=== PATIENT | male | born 1930 | race Caucasian/White ===

== ENCOUNTER 2017-11-16 17:54 | Emergency (ER) | payer OTHER ==
[~2017-11-16] VITALS: Ht 177.8 cm; Wt 100.7 kg
[~2017-11-16 17:54] MED LIST: ASPI81TA28 PO; CHOL100027 PO; CLC100X PO; CYAN10004 PO; FURO20TA PO; LEVO100T PO; LORA0.5T12 PO; LVQ750 PO; NTRGSL/4 UT; POTA1TAB PO; SIMV10TA5 PO; TAMS0.4C38 PO; THIA100T14 PO; TRAM-10 PO; VITA1CAP7 PO; WARF5TAB90 PO
[2017-11-16 18:10] VITALS: TEMP 36.5; Ht 177.8 cm; Wt 100.7 kg
--- NOTE | 2017-11-16 18:11 | EMERGENCY ROOM VISIT NOTE ---
History Report prepared by Luis: Frank Garcia Under the Supervision of: Dr. Jeromy Smith M.D. First contact with patient: 17:59 Stated Complaint: SYNCOPE, HYPOTENSION History of Present Illness The patient is an 86 year old male who presents to the Emergency Room with complaints of an episode of syncope occurring tonight. The patient states that he does not remember the episode today. Per nurse, the patient's blood pressure was 60/40 when he was brought in by EMS today. The patient notes that he has had similar episodes before and currently feels fine. He denies any CP, SOB, headache, neck pain, urinary symptoms, diarrhea, and blood in his stool. He reports that he has a history of atrial fibrillation and diabetes. Source of History: patient, nursing staff Onset: tonight Position: other (global) Quality: other (syncope) Timing: other (an episode) Associated Symptoms: No headache, No neck pain, No chest pain, No SOB, No diarrhea, No urinary symptoms Note: He also complains of hypotension. She denies any blood in his stool. Review of Systems See HPI for pertinent positives & negatives. A total of 10 systems reviewed and were otherwise negative. Past Medical & Surgical Medical Problems: (1) Atrial fibrillation (2) Diabetes (3) HTN (hypertension) Family History No pertinent family history stated. Social History Smoking Status: Never Smoker Drug Use: none Marital Status: Housing Status: lives with family Occupation Status: retired Current/Historical Medications Scheduled Aspirin (Aspirin Ec), 81 MG PO DAILY Atorvastatin (Atorvastatin Calcium), 40 MG PO DAILY Cholecalciferol (Vitamin D3 400), 400 INTER.UNIT PO DAILY Cyanocobalamin (Vitamin B-12 1000 Mcg), 1,000 MCG PO DAILY Furosemide (Furosemide), 10 MG PO DAILY Levothyroxine Sodium (Levothyroxine Sodium), 100 MCG PO DAILY Tamsulosin HCl (Tamsulosin HCl), 0.4 MG PO DAILY Vitamin E (Vitamin E), 1,000 INTER.UNIT PO Q2D Warfarin Sod (Jantoven), 7.5 MG PO 5XWK Warfarin Sod (Jantoven), 5 MG PO 2XWK Scheduled PRN Nitroglycerin (Nitrostat), 0.4 MG UT UD PRN for Chest Pain Allergies Coded Allergies: Glimepiride (Verified Allergy, Unknown, Dizziness, 11/16/17) Ramipril (Verified Allergy, Unknown, Cough, 11/16/17) Physical Exam Vital Signs Date Time Temp Pulse Resp B/P (MAP) Pulse Ox O2 Delivery O2 Flow Rate FiO2 11/16/17 19:53 76 18 176/87 99 11/16/17 18:49 82 20 164/83 99 77 161/89 97 158/77 11/16/17 18:10 36.5 78 20 151/95 100 Room Air Physical Exam GENERAL: Patient is well appearing and in no acute distress, elderly, hard of hearing. HEENT: No acute trauma, normocephalic atraumatic, mucous membranes moist, no nasal congestion, no scleral icterus. NECK: No stridor, no adenopathy, no meningismus, trachea is midline. LUNGS: No dyspnea. Clear to auscultation and equal bilaterally. No wheeze, no rhonchi. HEART: Regular rate and rhythm. No murmurs, rubs, gallops appreciated. ABDOMEN: Soft, nontender, bowel sounds positive, no masses appreciated, no peritonitis. BACK: No midline tenderness, no CVA tenderness EXTREMITIES: Normal motion all extremities, no cyanosis, no edema. NEUROLOGIC: Alert and oriented, no acute motor or sensory deficits, no focal weakness, cranial nerves grossly intact. SKIN: No rash, no jaundice, no diaphoresis. Medical Decision & Procedures ER Provider Diagnostic Interpretation: Radiology results and stated below per my review and radiologist interpretation: CHEST ONE VIEW PORTABLE FINDINGS: Atherosclerosis of the aortic arch. Cardiac silhouette normal in size. Lungs and pleural spaces clear. Degenerative changes of the thoracic spine. Upper abdomen normal. IMPRESSION: 1. No acute cardiopulmonary disease. Electronically signed by: Jero Christianson M.D. 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 Proportional ventricular and sulcal prominence, likely age-related parenchymal volume loss. Periventricular and subcortical white matter hypoattenuation, nonspecific but likely indicative of chronic small vessel ischemic change. 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 No mass effect or midline shift. No hemorrhage or acute territorial infarct. No extra-axial fluid collection. Paranasal sinuses and mastoid air cells clear. Calvarium intact. Bilateral lumbee lenses are absent. IMPRESSION: 1. No acute intracranial abnormality. 2. Known pituitary mass. Electronically signed by: Jero Christianson M.D. 11/16/2017 6:41 PM Laboratory Results 11/16/17 18:10 Red Blood Count 3.75, Mean Corpuscular Volume 93.3, Mean Corpuscular Hemoglobin 30.4, Mean Corpuscular Hemoglobin Concent 32.6, Mean Platelet Volume 10.3, Neutrophils (%) (Auto) 65.5, Lymphocytes (%) (Auto) 19.4, Monocytes (%) (Auto) 9.2, Eosinophils (%) (Auto) 5.2, Basophils (%) (Auto) 0.6, Neutrophils # (Auto) 5.27, Lymphocytes # (Auto) 1.56, Monocytes # (Auto) 0.74, Eosinophils # (Auto) 0.42, Basophils # (Auto) 0.05 11/16/17 18:10 Test 11/16/17 18:10 11/16/17 18:36 White Blood Count 8.05 K/uL (4.8-10.8) Red Blood Count 3.75 M/uL (4.7-6.1) Hemoglobin 11.4 g/dL (14.0-18.0) Hematocrit 35.0 % (42-52) Mean Corpuscular Volume 93.3 fL (80-100) Mean Corpuscular Hemoglobin 30.4 pg (25-34) Mean Corpuscular Hemoglobin Concent 32.6 g/dl (32-36) Platelet Count 157 K/uL (130-400) Mean Platelet Volume 10.3 fL (7.4-10.4) Neutrophils (%) (Auto) 65.5 % Lymphocytes (%) (Auto) 19.4 % Monocytes (%) (Auto) 9.2 % Eosinophils (%) (Auto) 5.2 % Basophils (%) (Auto) 0.6 % Neutrophils # (Auto) 5.27 K/uL (1.4-6.5) Lymphocytes # (Auto) 1.56 K/uL (1.2-3.4) Monocytes # (Auto) 0.74 K/uL (0.11-0.59) Eosinophils # (Auto) 0.42 K/uL (0-0.5) Basophils # (Auto) 0.05 K/uL (0-0.2) RDW Standard Deviation 47.4 fL (36.4-46.3) RDW Coefficient of Variation 13.8 % (11.5-14.5) Immature Granulocyte % (Auto) 0.1 % Immature Granulocyte # (Auto) 0.01 K/uL (0.00-0.02) Prothrombin Time 25.5 SECONDS (9.0-12.0) Prothromb Time International Ratio 2.5 (0.9-1.1) Activated Partial Thromboplast Time 32.6 SECONDS (21.0-31.0) Partial Thromboplastin Ratio 1.3 Anion Gap 6.0 mmol/L (3-11) Est Creatinine Clear Calc Drug Dose 39.4 ml/min Estimated GFR () 46.0 Estimated GFR (Non- 39.7 BUN/Creatinine Ratio 18.2 (10-20) Calcium Level 8.4 mg/dl (8.5-10.1) Troponin I < 0.015 ng/ml (0-0.045) Urine Color YELLOW Urine Appearance CLEAR (CLEAR) Urine pH 5.5 (4.5-7.5) Urine Specific [place] 1.013 (1.000-1.030) Urine Protein NEG (NEG) Urine Glucose (UA) NEG (NEG) Urine Ketones NEG (NEG) Urine Occult Blood 2+ (NEG) Urine Nitrite NEG (NEG) Urine Bilirubin NEG (NEG) Urine Urobilinogen NEG (NEG) Urine Leukocyte Esterase NEG (NEG) Urine WBC (Auto) 1-5 /hpf (0-5) Urine RBC (Auto) 10-30 /hpf (0-4) Urine Hyaline Casts (Auto) 1-5 /lpf (0-5) Urine Epithelial Cells (Auto) 10-20 /lpf (0-5) Urine Bacteria (Auto) NEG (NEG) Laboratory results as reviewed by me. Medications Administered Medications (Trade) Dose Ordered Sig/Stephanie Route Start Time Stop Time Status Last Admin Dose Admin Sodium Chloride 500 ml @ 999 mls/hr Q31M STAT IV 11/16/17 18:52 11/16/17 19:22 DC 11/16/17 19:23 999 MLS/HR ECG Indication: syncope Rate (beats per minute): 71 Rhythm: atrial flutter Findings: no acute ischemic change Comparison ECG Date: 05/28/2015 Change: There is similar morphology compared to prior. ST depression has resolved. ED Course 180: The patient was evaluated in room A2. A complete history and physical exam was performed. 1829: I reevaluated the patient. He is currently at CT. His daughter is at bedside. She stated that the patient was walking around tonight before his syncopal event. She notes that the patient suddenly appeared confused, altered, and then became weak. She reports that she sat him down and then laid him flat on the floor. She notes that the patient had shallow breathing, blue lips, and was minimally to non-responsive. She reports that the patient had a continued pulse and that the episode lasted about 15-25 minutes before EMS arrived. She states that the patient gradually returned to normal. 1851: Sodium Chloride 500 ml @ 999 mls/hr 1919: I rechecked on the patient. He does not want to stay and understands that we do not quite know what happened to him today. The patient is leaving against my medical advice. I spoke to him and told him that he can make his own decisions. His daughter agrees. He additionally notes that he would not have liked CPR anyway. 1928: Reevaluated the patient. Discussed results and discharge instructions. He verbalized understanding and agreement. The patient is ready for discharge. Medical Decision Differential: Vaso-vagal, Intracerebral Event, Neurologic, Infectious, Volume Deficiency, Hypoglycemia, Electrolyte Abnormality, Cardiac Source, Toxicologic, amongst other pathologies entertained. 86 yr old male arrives via ems for evaluation of prolonged syncope/ams. No symptoms on arrival and feeling well. Daughter witnessed event and is at baseline stating he is back to normal. Work-up benign other than maybe a bit on dry side and thus given some extra fluids. Ortho negative and EKG irregular like previous. He is not interested in staying in hospital for monitoring. I discussed at length with him and daughter fact that he could at home and that I am not sure of cause, though he wishes to go home. Aware he can return at any time if worsening, other concerns or just wants recheck. Stressed importance of following up with PCP as soon as possible. Stable, comfortable, A &Ox4 and watching football at time of discharge. Medication Reconcilliation Current Medication List: was personally reviewed by me Blood Pressure Screening Patient's blood pressure: Elevated blood pressure Blood pressure disposition: Elevated BP felt to be situational Impression Primary Impression: Syncope Additional Impression: Dehydration Scribe Attestation The scribe's documentation has been prepared under my direction and personally reviewed by me in its entirety. I confirm that the note above accurately reflects all work, treatment, procedures, and medical decision making performed by me. Departure Information Dispostion Home / Self-Care Referrals Luz Elena Mares M.D. (PCP) Forms HOME CARE DOCUMENTATION FORM, IMPORTANT VISIT INFORMATION Patient Instructions [facility] Additional Instructions You had a syncopal event of unknown cause. The standard care would be to monitor you in the hospital though you have chosen to leave to go home. We are unsure why you had your passing out episode and it is possible it was a heart attack, stroke or other severe medical condition that may re-occur, possibly worse next time. We are always here to help and if at any time you wish further evaluation, return immediately or call 911. You must follow up with your primary care provider as soon as possible. Call them in the morning to make an urgent appointment. Problem Qualifiers Primary Impression: Syncope Syncope type: unspecified Qualified Codes: R55 - Syncope and collapse
[2017-11-16 18:20] LABS: BASO % 0.6 %; BASO ABS # 0.05 K/uL (0-0.2); COMPLETE YES; EOS % 5.2 %; IG% 0.1 %; LYMPH % 19.4 %; LYMPH ABS # 1.56 K/uL (1.2-3.4); MEAN CELL VOLUME 93.3 fL (80-100); MEAN CORPUSCULAR HEMOGLOBIN 30.4 pg (25-34); MEAN CORPUSCULAR HGB CONC 32.6 g/dl (32-36); MEAN PLATELET VOLUME 10.3 fL (7.4-10.4); MONO % 9.2 %; NEUT % 65.5 %; PLATELET COUNT 157 K/uL (130-400); RED BLOOD COUNT 3.75 M/uL (4.7-6.1); WHITE BLOOD COUNT 8.05 K/uL (4.8-10.8)
[2017-11-16] MEDS ORDERED: LPT40 PO (18:23)
[2017-11-16] MEDS ORDERED: WARF5TAB7 PO ×2 (18:23)
[2017-11-16] MEDS ORDERED: FLM4 PO (18:23)
[2017-11-16] MEDS ORDERED: LEVO100T7 PO (18:23)
[2017-11-16] MEDS ORDERED: LSX20 PO (18:23)
[2017-11-16] MEDS ORDERED: VITA10004 PO (18:26)
[2017-11-16] MEDS ORDERED: CHOL400C PO (18:28)
--- NOTE | 2017-11-16 18:29 | DIAGNOSTIC IMAGING REPORT ---
CHEST ONE VIEW PORTABLE CLINICAL HISTORY: 86 years-old Male presenting with Syncope. TECHNIQUE: Portable upright AP view of the chest was obtained. COMPARISON: 05/29/2015. FINDINGS: Atherosclerosis of the aortic arch. Cardiac silhouette normal in size. Lungs and pleural spaces clear. Degenerative changes of the thoracic spine. Upper abdomen normal. IMPRESSION: 1. No acute cardiopulmonary disease. Electronically signed by: Jero Christianson M.D. 11/16/2017 6:27 PM Dictated Date/Time: 11/16/2017 6:26 PM
[2017-11-16 18:34] LABS: INR 2.5 (0.9-1.1); PARTIAL THROMBOPLASTIN RATIO 1.3; PROTHROMBIN TIME (PATIENT) 25.5 SECONDS (9.0-12.0)
--- NOTE | 2017-11-16 18:42 | DIAGNOSTIC IMAGING REPORT ---
HEAD WITHOUT CONTRAST (CT) CLINICAL HISTORY: 86 years-old Male presenting with syncope, remote history of brain surgery. TECHNIQUE: Multidetector CT imaging of the head was performed without the use of intravenous contrast. IV contrast: None. A dose lowering technique was used consistent with the principles of ALARA (as low as reasonably achievable). COMPARISON: 05/06/2015. CT DOSE (mGy.cm): The estimated cumulative dose is 749.40 mGy.cm. 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 Proportional ventricular and sulcal prominence, likely age-related parenchymal volume loss. Periventricular and subcortical white matter hypoattenuation, nonspecific but likely indicative of chronic small vessel ischemic change. 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 No mass effect or midline shift. No hemorrhage or acute territorial infarct. No extra-axial fluid collection. Paranasal sinuses and mastoid air cells clear. Calvarium intact. Bilateral [place] lenses are absent. IMPRESSION: 1. No acute intracranial abnormality. 2. Known pituitary mass. Electronically signed by: Jero Christianson M.D. 11/16/2017 6:41 PM Dictated Date/Time: 11/16/2017 6:37 PM
[2017-11-16 18:49] LABS: BLOOD UREA NITROGEN 28 mg/dl (7-18); BUN/CREATININE RATIO 18.2 (10-20); CALCIUM 8.4 mg/dl (8.5-10.1); CARBON DIOXIDE 29 mmol/L (21-32); CHLORIDE 108 mmol/L (98-107); CREATININE 1.54 mg/dl (0.60-1.40); GLUCOSE 125 mg/dl (70-99); POTASSIUM 3.6 mmol/L (3.5-5.1); SODIUM 143 mmol/L (136-145)
[2017-11-16] MEDS ORDERED: SODIUM CHLORIDE 0.9% 500ML 500 ML IV STA (18:52)
[2017-11-16 19:01] LABS: URINE APPEARANCE CLEAR (CLEAR); URINE BILIRUBIN NEG (NEG); URINE COLOR YELLOW; URINE NITRITE NEG (NEG); URINE PH 5.5 (4.5-7.5); URINE SPECIFIC GRAVITY 1.013 (1.000-1.030); UROBILINOGEN NEG (NEG); ZZUR CULT IF INDIC CLEAN CATCH NO
[2017-11-16 19:03] LABS: MANUAL MICROSCOPIC REQUIRED? NO; REVIEW REQ? NO
[2017-11-16 19:53] VITALS: BP 176/87; PULSE 76; O2SAT 99
== END 2017-11-16 19:53 | disposition home or self-care (01) ==
LOC: EDBD 17:54 → C.EDA 17:57
DX: R55 Syncope and collapse (principal); E86.0 Dehydration; I48.92 Unspecified atrial flutter; I48.91 Unspecified atrial fibrillation; E11.9 Type 2 diabetes mellitus without complications; I10 Essential (primary) hypertension; Z79.82 Long term (current) use of aspirin; Z79.01 Long term (current) use of anticoagulants; Z79.899 Other long term (current) drug therapy; Z88.8 Allergy status to other drugs, medicaments and biological substances

== ENCOUNTER 2018-02-18 14:26 | Inpatient (IN) | payer OTHER ==
[~2018-02-18] VITALS: Ht 182.9 cm; Wt 94.2 kg
[~2018-02-18 14:26] MED LIST changes: -CHOL100027 PO; +CHOL400C PO; -CLC100X PO; +FLM4 PO; -FURO20TA PO; -LEVO100T PO; +LEVO100T7 PO; -LORA0.5T12 PO; +LPT40 PO; +LSX20 PO; -LVQ750 PO; -POTA1TAB PO; -SIMV10TA5 PO; -TAMS0.4C38 PO; -THIA100T14 PO; -TRAM-10 PO; +VITA10004 PO; -VITA1CAP7 PO; +WARF5TAB7 PO; -WARF5TAB90 PO
[2018-02-18] MEDS ORDERED: SODIUM CHLORIDE 0.9% 1000ML 1,000 ML IV STA (14:41)
[2018-02-18] MEDS ORDERED: ONDANSETRON INJ 2 MG/ML 2 ML VIAL IV STA (14:41)
--- NOTE | 2018-02-18 14:41 | EMERGENCY ROOM VISIT NOTE ---
History Report prepared by Luis: Lisbeth Moraes Under the Supervision of: Aisha ZhangO. First contact with patient: 14:33 Stated Complaint: FALL/BACK AND HIP PAIN History of Present Illness The patient is an 87 year old male who presents to the Emergency Room brought in by EMS with complaints of constant left hip pain due to an episodic fall that occurred last night. The patient states that he tripped and fell onto his carpeted floor last night and stayed on the floor all night. He states that he tried to get up several times and was crawling at points in an effort to get up , though was unsuccessful. Per EMS, the patients family found the patient on the floor this afternoon. The family reports they last spoke with the past at 1700 yesterday. The patient notes left hip pain, right lower leg pain, left ankle pain, and right shoulder pain. He denies any back pain or neck pain. He currently rates his pain a 6/10 in severity. He notes that movement worsens his pain. Source of History: patient, EMS Onset: last night Position: other (left hip) Symptom Intensity: 6/10 Timing: constant Modifying Factors (Worsening): movement Associated Symptoms: No neck pain, No back pain Note: Notes fall. Notes left hip pain, right lower leg pain, left ankle pain, and right shoulder pain. Review of Systems See HPI for pertinent positives & negatives. A total of 10 systems reviewed and were otherwise negative. Past Medical & Surgical Medical Problems: (1) Atrial fibrillation (2) Diabetes (3) Hematoma (4) HTN (hypertension) Family History No pertinent family history Social History Smoking Status: Former Smoker Drug Use: none Marital Status: Housing Status: lives with family Occupation Status: retired Current/Historical Medications Scheduled Aspirin (Aspirin Ec), 81 MG PO DAILY Atorvastatin (Lipitor), 40 MG PO DAILY Cholecalciferol (Vitamin D3 400), 400 INTER.UNIT PO DAILY Cyanocobalamin (Vitamin B-12 1000 Mcg), 1,000 MCG PO DAILY Furosemide (Furosemide), 10 MG PO DAILY Levothyroxine Sodium (Levothyroxine Sodium), 100 MCG PO DAILY Tamsulosin HCl (Tamsulosin HCl), 0.4 MG PO DAILY Vitamin E (Vitamin E), 1,000 INTER.UNIT PO Q2D Warfarin Sod (Jantoven), 7.5 MG PO 5XWK Warfarin Sod (Jantoven), 5 MG PO 2XWK Scheduled PRN Nitroglycerin (Nitrostat), 0.4 MG UT UD PRN for Chest Pain Allergies Coded Allergies: Glimepiride (Verified Allergy, Unknown, Dizziness, 02/18/18) Ramipril (Verified Allergy, Unknown, Cough, 02/18/18) Physical Exam Vital Signs Date Time Temp Pulse Resp B/P (MAP) Pulse Ox O2 Delivery O2 Flow Rate FiO2 02/18/18 21:39 84 20 135/75 96 02/18/18 19:13 76 127/64 95 Room Air 02/18/18 17:03 79 18 134/74 99 Room Air 02/18/18 15:11 80 15 94 02/18/18 15:06 72 17 97 02/18/18 15:01 81 17 163/90 98 02/18/18 14:56 83 19 98 02/18/18 14:51 78 18 97 02/18/18 14:46 83 18 97 02/18/18 14:44 99 Room Air 02/18/18 14:44 37.0 81 20 163/100 99 Room Air 02/18/18 14:41 80 15 98 02/18/18 14:38 81 02/18/18 14:36 79 22 02/18/18 14:34 163/100 Physical Exam GENERAL: Patient is awake, alert, and in no acute distress. Patient is uncomfortable appearing. EYES: The conjunctivae are clear. The pupils are round and reactive. EARS, NOSE, MOUTH AND THROAT: The nose is without any evidence of any deformity. Mucous membranes are dry tongue is midline NECK: The neck is nontender and supple. RESPIRATORY: Lung sounds diminished throughout, rales at both bases. CARDIOVASCULAR: Regular rate and rhythm noted there no murmurs rubs or gallops normal S1 normal S2 GASTROINTESTINAL: The abdomen is soft. Bowel sounds are present in all quadrants. Abdomen is nontender BACK: No midline tenderness or or step-off noted range of motion in flexion extension as well as rotation no signs of muscle spasm noted MUSCULOSKELETAL/EXTREMITIES: Pain with ROM of left hip, significant shortening appreciated, multiple other areas of tenderness to palpation at the right tib- fib, left ankle, left hip, and right shoulder. SKIN: Pedal edema bilaterally, erythema and abrasions noted to LE and the face. NEUROLOGIC: Patient is awake alert and oriented x3, strength is symmetric, but diminished. Medical Decision & Procedures ER Provider Diagnostic Interpretation: Radiology results as stated below per my review and radiologist interpretation: R TIBIA/FIBULA 2 VIEWS ROUTINE CLINICAL HISTORY: 87 years-old Male presenting with fall. TECHNIQUE: Frontal and lateral views of the right lower leg were obtained. COMPARISON: None. FINDINGS: Degenerative changes at the knee and ankle mortise. Both the knee joint and ankle mortise are intact. No acute fracture or acute subluxation. Osteopenia may be present. Atherosclerosis. IMPRESSION: No acute osseous injury of the right lower leg. Electronically signed by: Jero Christianson M.D. 02/18/2018 3:58 PM Dictated Date/Time: 02/18/2018 3:57 PM R HUMERUS MIN 2 VIEWS ROUTINE CLINICAL HISTORY: 87 years-old Male presenting with fall. TECHNIQUE: Frontal and lateral views of the right humerus were obtained. COMPARISON: None. FINDINGS: Glenohumeral joint and acromioclavicular joint with degenerative change. 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 No acute fracture or acute subluxation. No radiographic soft tissue abnormality. IMPRESSION: No acute osseous injury of the right humerus. Electronically signed by: Jero Christianson M.D. 02/18/2018 3:56 PM Dictated Date/Time: 02/18/2018 3:54 PM L PELVIS/UNILATERAL HIP 2-3VIEWS CLINICAL HISTORY: fall trauma. Pain. COMPARISON: None. DISCUSSION: Generalized degenerative change. No evidence for fracture. 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 There is no evidence for soft tissue swelling. IMPRESSION: Degenerative change. No acute bony abnormality. The above report was generated using voice recognition software. It may contain grammatical, syntax or spelling errors. Electronically signed by: Yeyo Stiles M.D. 02/18/2018 3:55 PM Dictated Date/Time: 02/18/2018 3:[address] OF THE HEAD WITHOUT CONTRAST CLINICAL HISTORY: Fall. COMPARISON STUDY: Head CT November 16, 2017. CT DOSE: 823.94 mGycm TECHNIQUE: Helical axial images of the head were obtained without IV contrast. Automated exposure control was utilized for the study. A dose lowering technique was utilized adhering to the principles of ALARA. FINDINGS: No acute intracranial hemorrhage is present. Ventricular system is stable. Basilar cisterns are patent. There are no extra axial collections. Bilobed basal ganglia calcification is noted. Pontine calcification is again noted. White matter hypodensity suggests small vessel disease. There is no calvarial fracture. 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 This is suboptimally assessed by CT. There is mild mucosal thickening of the sinuses. IMPRESSION: 1. No acute intracranial findings. 2. No calvarial fracture. 3. Known pituitary lesion. Electronically signed by: Krishna Dai M.D. 02/18/2018 4:27 PM Dictated Date/Time: 02/18/2018 4:23 PM CHEST ONE VIEW PORTABLE CLINICAL HISTORY: fall trauma COMPARISON STUDY: 11/16/2017 FINDINGS: The bones soft tissues and hemidiaphragms are normal. The cardiomediastinal silhouette is normal. The lungs are clear. The pulmonary vasculature is normal. IMPRESSION: Negative chest. The above report was generated using voice recognition software. It may contain grammatical, syntax or spelling errors. Electronically signed by: Yeyo Stiles M.D. 02/18/2018 3:54 PM Dictated Date/Time: 02/18/2018 3:54 PM CERVICAL SPINE W/O CLINICAL HISTORY: 87 years-old Male presenting with fall. TECHNIQUE: Multidetector CT of the cervical spine was performed without the use of intravenous contrast. IV contrast: None. A dose lowering technique was used consistent with the principles of ALARA (as low as reasonably achievable). COMPARISON: None. CT DOSE (mGy.cm): The estimated cumulative dose is 1031.82 mGycm. 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 Straightening of normal cervical lordosis likely positional and secondary to multilevel degenerative change. No acute fracture or subluxation. Osseous neural foraminal narrowing results from uncovertebral hypertrophy/disc osteophyte complexes and facet arthropathy. Narrowing is noted on the right at C2-3, right greater than left at C3-4, left at C4-5, mild bilaterally at C5-6, and bilaterally at C6-7. No osseous spinal canal narrowing. Skull base intact. Paraspinal soft tissues remarkable for atherosclerosis. Lung apices clear. IMPRESSION: 1. No acute osseous injury of the cervical spine. 2. Multilevel degenerative changes with multilevel neural foraminal narrowing. Electronically signed by: Jero Christianson M.D. 02/18/2018 4:27 PM Dictated Date/Time: 02/18/2018 4:24 PM L ANKLE MIN 3 VIEWS ROUTINE CLINICAL HISTORY: fall trauma. Pain. COMPARISON: None. DISCUSSION: Findings of moderate generalized osteopenia. No well-defined fracture or dislocation. Ankle mortise is aligned anatomically. There is a very small heel spur. Subtalar joint is intact. There is no evidence for soft tissue swelling. IMPRESSION: Osteopenia. Moderate degenerative change. No acute bony abnormality. The above report was generated using voice recognition software. It may contain grammatical, syntax or spelling errors. Electronically signed by: Yeyo Stiles M.D. 02/18/2018 3:57 PM Dictated Date/Time: 02/18/2018 3:[address] OF THE PELVIS WITHOUT CONTRAST CLINICAL HISTORY: Fall. COMPARISON STUDY: Pelvis radiograph performed earlier today. TECHNIQUE: Axial images of the pelvis and hips were obtained without IV contrast. Sagittal and coronal reconstructions were viewed. FINDINGS: The sacroiliac joints and symphysis pubis are intact. There is no acute fracture within the pelvis or the hips. There is mild asymmetric enlargement and indistinctness of the adjacent fat planes of the left adductor musculature which is partially imaged on this exam. Suggest an intramuscular hematoma, likely small to moderate in size, only partially imaged. No additional pelvic hematomas are present. There are no suspicious osseous lesions. 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 IMPRESSION: 1. No acute fracture within the pelvis or hips. 2. Suspected intramuscular hematoma within the left adductor musculature. This is likely small to moderate in size but only partially imaged on this exam. Electronically signed by: Krishna Dai M.D. 02/18/2018 4:39 PM Dictated Date/Time: 02/18/2018 4:27 PM Laboratory Results 02/18/18 16:50 Red Blood Count 3.88, Mean Corpuscular Volume 89.4, Mean Corpuscular Hemoglobin 30.4, Mean Corpuscular Hemoglobin Concent 34.0, Mean Platelet Volume 9.9, Neutrophils (%) (Auto) 78.0, Lymphocytes (%) (Auto) 9.7, Monocytes (%) (Auto) 10.6, Eosinophils (%) (Auto) 1.1, Basophils (%) (Auto) 0.3, Neutrophils # (Auto ) 7.99, Lymphocytes # (Auto) 0.99, Monocytes # (Auto) 1.08, Eosinophils # (Auto ) 0.11, Basophils # (Auto) 0.03 02/18/18 16:50 Test 02/18/18 15:20 02/18/18 16:50 Urine Color YELLOW Urine Appearance CLEAR (CLEAR) Urine pH 8.5 (4.5-7.5) Urine Specific Dahlgren 1.015 (1.000-1.030) Urine Protein 1+ (NEG) Urine Glucose (UA) NEG (NEG) Urine Ketones TRACE (NEG) Urine Occult Blood 3+ (NEG) Urine Nitrite NEG (NEG) Urine Bilirubin NEG (NEG) Urine Urobilinogen NEG (NEG) Urine Leukocyte Esterase NEG (NEG) Urine WBC (Auto) 1-5 /hpf (0-5) Urine RBC (Auto) >30 /hpf (0-4) Urine Hyaline Casts (Auto) 0 /lpf (0-5) Urine Epithelial Cells (Auto) 10-20 /lpf (0-5) Urine Bacteria (Auto) NEG (NEG) White Blood Count 10.23 K/uL (4.8-10.8) Red Blood Count 3.88 M/uL (4.7-6.1) Hemoglobin 11.8 g/dL (14.0-18.0) Hematocrit 34.7 % (42-52) Mean Corpuscular Volume 89.4 fL (80-100) Mean Corpuscular Hemoglobin 30.4 pg (25-34) Mean Corpuscular Hemoglobin Concent 34.0 g/dl (32-36) Platelet Count 179 K/uL (130-400) Mean Platelet Volume 9.9 fL (7.4-10.4) Neutrophils (%) (Auto) 78.0 % Lymphocytes (%) (Auto) 9.7 % Monocytes (%) (Auto) 10.6 % Eosinophils (%) (Auto) 1.1 % Basophils (%) (Auto) 0.3 % Neutrophils # (Auto) 7.99 K/uL (1.4-6.5) Lymphocytes # (Auto) 0.99 K/uL (1.2-3.4) Monocytes # (Auto) 1.08 K/uL (0.11-0.59) Eosinophils # (Auto) 0.11 K/uL (0-0.5) Basophils # (Auto) 0.03 K/uL (0-0.2) RDW Standard Deviation 42.8 fL (36.4-46.3) RDW Coefficient of Variation 13.3 % (11.5-14.5) Immature Granulocyte % (Auto) 0.3 % Immature Granulocyte # (Auto) 0.03 K/uL (0.00-0.02) Prothrombin Time 23.4 SECONDS (9.0-12.0) Prothromb Time International Ratio 2.3 (0.9-1.1) Activated Partial Thromboplast Time 38.3 SECONDS (21.0-31.0) Partial Thromboplastin Ratio 1.5 Anion Gap 6.0 mmol/L (3-11) Est Creatinine Clear Calc Drug Dose 51.4 ml/min Estimated GFR () 71.0 Estimated GFR (Non- 61.2 BUN/Creatinine Ratio 16.4 (10-20) Calcium Level 8.6 mg/dl (8.5-10.1) Magnesium Level 2.1 mg/dl (1.8-2.4) Total Bilirubin 1.8 mg/dl (0.2-1) Direct Bilirubin 0.5 mg/dl (0-0.2) Aspartate Amino Transf (AST/SGOT) 41 U/L (15-37) Alanine Aminotransferase (ALT/SGPT) 21 U/L (12-78) Alkaline Phosphatase 66 U/L (45-117) Total Creatine Kinase 849 U/L (39-308) Creatine Kinase MB 13.9 ng/ml (0.5-3.6) Creatine Kinase MB Ratio 1.6 (0-3.0) Troponin I < 0.015 ng/ml (0-0.045) Total Protein 7.4 gm/dl (6.4-8.2) Albumin 3.5 gm/dl (3.4-5.0) Laboratory results per my review. Medications Administered Medications (Trade) Dose Ordered Sig/Stephanie Route Start Time Stop Time Status Last Admin Dose Admin Sodium Chloride 1,000 ml @ 999 mls/hr Q1H1M STAT IV 02/18/18 14:41 02/18/18 15:41 DC 02/18/18 17:02 999 MLS/HR Fentanyl Citrate (Fentanyl Inj) 50 mcg Q15M PRN IV 02/18/18 14:45 03/04/18 14:44 02/18/18 17:02 50 MCG Ondansetron HCl (Zofran Inj) 4 mg NOW STAT IV 02/18/18 14:41 02/18/18 14:44 DC 02/18/18 17:02 4 MG ECG Per My Interpretation Indication: other (fall) Rate (beats per minute): 79 Rhythm: atrial fibrillation Findings: no acute ischemic change, no ectopy Change: no significant change (when compared to 11/16/2017) ED Course 1436: The patient was evaluated in room B3B. A complete history and physical examination were performed. 1441: Ordered Zofran 4 mg IV and NSS 1,000 ml @ 999 mls/hr IV 1445: Ordered Fentanyl Citrate 50 mcg IV 1751: I reassessed the patient at this time. I spoke with the patients family, they report the patient seems to be back to baseline. 1909: I spoke with Jose Walton PA-C. We discussed the patient 's case. [facility] Medical Decision Prior records/ancillary studies reviewed. Triage Nursing notes reviewed. The patient's history was concerning for traumatic injury Differential diagnosis: Etiologies such as fracture, dislocation, intra-abdominal, pneumothorax, intrathoracic , intracranial, neurologic, as well as other traumatic pathologies were entertained. The patient is an 87-year-old male who presented to the emergency department after a fall. The patient was found on the floor. He is awake and alert and remembers the fall. He was unable to stand because of significant pain in his left hip. The patient did not appear to have a bony injury on radiographic studies but does have a soft tissue hematoma. Currently the patient takes anticoagulation for atrial fibrillation. He appears to have some degree of rhabdomyolysis as well. I discussed patient's laboratory and radiographic studies with the family members as well as the patient. He was treated with IV fluids in the emergency department. He was feeling somewhat improved and was able to ambulate with some difficulty. Currently the patient does live alone. Given his laboratory findings and his use of anticoagulation I discussed his case with the on-call [facility] Hospitalist. They have agreed to evaluate the patient in the emergency department for further management and disposition. Medication Reconcilliation Current Medication List: was personally reviewed by me Blood Pressure Screening Patient's blood pressure: Elevated blood pressure referred to hospitalist Consults Time Called: 1848 Consulting Physician: Jose Walton PA-C Returned Call: 1909 I spoke with Jose Walton PA-C. We discussed the patient's case. The patient will be evaluated by the [facility] for further management. Impression Primary Impression: Fall Additional Impressions: Hematoma of left thigh Head injury Rhabdomyolysis Hematuria Scribe Attestation The scribe's documentation has been prepared under my direction and personally reviewed by me in its entirety. I confirm that the note above accurately reflects all work, treatment, procedures, and medical decision making performed by me. Departure Information Dispostion Being Evaluated By Hospitalist Referrals Franki Brush M.D. (PCP) Problem Qualifiers
[2018-02-18] MEDS ORDERED: FENTANYL CITRATE INJ 50 MCG/1 ML 2 ML VIAL IV PRN (14:45)
--- NOTE | 2018-02-18 15:56 | DIAGNOSTIC IMAGING REPORT ---
CHEST ONE VIEW PORTABLE CLINICAL HISTORY: fall trauma COMPARISON STUDY: 11/16/2017 FINDINGS: The bones soft tissues and hemidiaphragms are normal. The cardiomediastinal silhouette is normal. The lungs are clear. The pulmonary vasculature is normal. IMPRESSION: Negative chest. The above report was generated using voice recognition software. It may contain grammatical, syntax or spelling errors. Electronically signed by: Yeyo Stiles M.D. 02/18/2018 3:54 PM Dictated Date/Time: 02/18/2018 3:54 PM
--- NOTE | 2018-02-18 15:57 | DIAGNOSTIC IMAGING REPORT ---
L PELVIS/UNILATERAL HIP 2-3VIEWS CLINICAL HISTORY: fall trauma. Pain. COMPARISON: None. DISCUSSION: Generalized degenerative change. No evidence for fracture. 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 There is no evidence for soft tissue swelling. IMPRESSION: Degenerative change. No acute bony abnormality. The above report was generated using voice recognition software. It may contain grammatical, syntax or spelling errors. Electronically signed by: Yeyo Stiles M.D. 02/18/2018 3:55 PM Dictated Date/Time: 02/18/2018 3:55 PM
--- NOTE | 2018-02-18 15:58 | DIAGNOSTIC IMAGING REPORT ---
L ANKLE MIN 3 VIEWS ROUTINE CLINICAL HISTORY: fall trauma. Pain. COMPARISON: None. DISCUSSION: Findings of moderate generalized osteopenia. No well-defined fracture or dislocation. Ankle mortise is aligned anatomically. There is a very small heel spur. Subtalar joint is intact. There is no evidence for soft tissue swelling. IMPRESSION: Osteopenia. Moderate degenerative change. No acute bony abnormality. The above report was generated using voice recognition software. It may contain grammatical, syntax or spelling errors. Electronically signed by: Yeyo Stiles M.D. 02/18/2018 3:57 PM Dictated Date/Time: 02/18/2018 3:56 PM
--- NOTE | 2018-02-18 15:58 | DIAGNOSTIC IMAGING REPORT ---
R HUMERUS MIN 2 VIEWS ROUTINE CLINICAL HISTORY: 87 years-old Male presenting with fall. TECHNIQUE: Frontal and lateral views of the right humerus were obtained. COMPARISON: None. FINDINGS: Glenohumeral joint and acromioclavicular joint with degenerative change. 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 No acute fracture or acute subluxation. No radiographic soft tissue abnormality. IMPRESSION: No acute osseous injury of the right humerus. Electronically signed by: Jero Christianson M.D. 02/18/2018 3:56 PM Dictated Date/Time: 02/18/2018 3:54 PM
--- NOTE | 2018-02-18 16:00 | DIAGNOSTIC IMAGING REPORT ---
R TIBIA/FIBULA 2 VIEWS ROUTINE CLINICAL HISTORY: 87 years-old Male presenting with fall. TECHNIQUE: Frontal and lateral views of the right lower leg were obtained. COMPARISON: None. FINDINGS: Degenerative changes at the knee and ankle mortise. Both the knee joint and ankle mortise are intact. No acute fracture or acute subluxation. Osteopenia may be present. Atherosclerosis. IMPRESSION: No acute osseous injury of the right lower leg. Electronically signed by: Jero Christianson M.D. 02/18/2018 3:58 PM Dictated Date/Time: 02/18/2018 3:57 PM
--- NOTE | 2018-02-18 16:28 | DIAGNOSTIC IMAGING REPORT ---
CT OF THE HEAD WITHOUT CONTRAST CLINICAL HISTORY: Fall. COMPARISON STUDY: Head CT November 16, 2017. CT DOSE: 823.94 mGycm TECHNIQUE: Helical axial images of the head were obtained without IV contrast. Automated exposure control was utilized for the study. A dose lowering technique was utilized adhering to the principles of ALARA. FINDINGS: No acute intracranial hemorrhage is present. Ventricular system is stable. Basilar cisterns are patent. There are no extra axial collections. Bilobed basal ganglia calcification is noted. Pontine calcification is again noted. White matter hypodensity suggests small vessel disease. There is no calvarial fracture. 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 This is suboptimally assessed by CT. There is mild mucosal thickening of the sinuses. IMPRESSION: 1. No acute intracranial findings. 2. No calvarial fracture. 3. Known pituitary lesion. Electronically signed by: Krishna Dai M.D. 02/18/2018 4:27 PM Dictated Date/Time: 02/18/2018 4:23 PM
--- NOTE | 2018-02-18 16:28 | DIAGNOSTIC IMAGING REPORT ---
CERVICAL SPINE W/O CLINICAL HISTORY: 87 years-old Male presenting with fall. TECHNIQUE: Multidetector CT of the cervical spine was performed without the use of intravenous contrast. IV contrast: None. A dose lowering technique was used consistent with the principles of ALARA (as low as reasonably achievable). COMPARISON: None. CT DOSE (mGy.cm): The estimated cumulative dose is 1031.82 mGycm. 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 Straightening of normal cervical lordosis likely positional and secondary to multilevel degenerative change. No acute fracture or subluxation. Osseous neural foraminal narrowing results from uncovertebral hypertrophy/disc osteophyte complexes and facet arthropathy. Narrowing is noted on the right at C2-3, right greater than left at C3-4, left at C4-5, mild bilaterally at C5-6, and bilaterally at C6-7. No osseous spinal canal narrowing. Skull base intact. Paraspinal soft tissues remarkable for atherosclerosis. Lung apices clear. IMPRESSION: 1. No acute osseous injury of the cervical spine. 2. Multilevel degenerative changes with multilevel neural foraminal narrowing. Electronically signed by: Jero Christianson M.D. 02/18/2018 4:27 PM Dictated Date/Time: 02/18/2018 4:24 PM
--- NOTE | 2018-02-18 16:40 | DIAGNOSTIC IMAGING REPORT ---
CT OF THE PELVIS WITHOUT CONTRAST CLINICAL HISTORY: Fall. COMPARISON STUDY: Pelvis radiograph performed earlier today. TECHNIQUE: Axial images of the pelvis and hips were obtained without IV contrast. Sagittal and coronal reconstructions were viewed. FINDINGS: The sacroiliac joints and symphysis pubis are intact. There is no acute fracture within the pelvis or the hips. There is mild asymmetric enlargement and indistinctness of the adjacent fat planes of the left adductor musculature which is partially imaged on this exam. Suggest an intramuscular hematoma, likely small to moderate in size, only partially imaged. No additional pelvic hematomas are present. There are no suspicious osseous lesions. 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 IMPRESSION: 1. No acute fracture within the pelvis or hips. 2. Suspected intramuscular hematoma within the left adductor musculature. This is likely small to moderate in size but only partially imaged on this exam. Electronically signed by: Krishna Dai M.D. 02/18/2018 4:39 PM Dictated Date/Time: 02/18/2018 4:27 PM
[2018-02-18 17:04] LABS: BASO % 0.3 %; BASO ABS # 0.03 K/uL (0-0.2); EOS % 1.1 %; EOS ABS # 0.11 K/uL (0-0.5); HEMATOCRIT 34.7 % (42-52); HEMOGLOBIN 11.8 g/dL (14.0-18.0); IG# 0.03 K/uL (0.00-0.02); LYMPH % 9.7 %; LYMPH ABS # 0.99 K/uL (1.2-3.4); MEAN CELL VOLUME 89.4 fL (80-100); MEAN CORPUSCULAR HEMOGLOBIN 30.4 pg (25-34); MEAN PLATELET VOLUME 9.9 fL (7.4-10.4); MONO % 10.6 %; MONO ABS # 1.08 K/uL (0.11-0.59); NEUT ABS # 7.99 K/uL (1.4-6.5); PLATELET COUNT 179 K/uL (130-400); RED CELL DISTRIBUTION WIDTH CV 13.3 % (11.5-14.5); RED CELL DISTRIBUTION WIDTH SD 42.8 fL (36.4-46.3); WHITE BLOOD COUNT 10.23 K/uL (4.8-10.8)
[2018-02-18 17:14] LABS: INR 2.3 (0.9-1.1); PTT PATIENT 38.3 SECONDS (21.0-31.0)
[2018-02-18 17:24] LABS: ALBUMIN 3.5 gm/dl (3.4-5.0); ALT/SGPT 21 U/L (12-78); AST/SGOT 41 U/L (15-37); BLOOD UREA NITROGEN 18 mg/dl (7-18); CALCIUM 8.6 mg/dl (8.5-10.1); CARBON DIOXIDE 28 mmol/L (21-32); CREATININE 1.07 mg/dl (0.60-1.40); GLUCOSE 126 mg/dl (70-99); POTASSIUM 3.5 mmol/L (3.5-5.1); SODIUM 137 mmol/L (136-145)
[2018-02-18 17:30] LABS: ALKALINE PHOSPHATASE 66 U/L (45-117); CKMB 13.9 ng/ml (0.5-3.6); TOTAL PROTEIN 7.4 gm/dl (6.4-8.2)
[2018-02-18] MEDS ORDERED: INSULIN ASPART 100 UNITS/ML 3 ML PEN SC ONE (21:14)
[2018-02-18] MEDS ORDERED: GLUCOSE 40% GEL 15 GM TUBE PO PRN (21:15)
[2018-02-18] MEDS ORDERED: NITROGLYCERIN 0.4 MG SL PER TAB CHARGE SL PRN (21:15)
[2018-02-18] MEDS ORDERED: DEXTROSE 50% 50 ML SYR IV PRN (21:15)
[2018-02-18] MEDS ORDERED: GLUCOSE 10 TABS/TUBE PO PRN (21:15)
[2018-02-18] MEDS ORDERED: PROCHLORPERAZINE INJ 5 MG in SYRINGE 4 ML IV PRN (21:15)
[2018-02-18] MEDS ORDERED: HYDROmorphone INJ 0.5 MG/0.5 ML SYR IV PRN (21:15)
[2018-02-18] MEDS ORDERED: GLUCAGON FOR INJ 1 MG VIAL SQ PRN (21:15)
--- NOTE | 2018-02-18 22:55 | DIAGNOSTIC IMAGING REPORT ---
CAROTID DOPPLER NECK ART CLINICAL HISTORY: 87 years-old Male presenting with recurrent syncope; hx carotid art disease. TECHNIQUE: Real-time grayscale and color and spectral Doppler ultrasound imaging of the bilateral carotid arteries was performed. NASCET criteria was used in evaluating this study. COMPARISON: None. FINDINGS: Right: Common carotid: Atherosclerosis. Peak systolic velocity 63 cm/s. Internal carotid artery: Atherosclerosis of the proximal ICA. Peak systolic velocity 146 cm/s. Systolic ratio: 2.3. External carotid artery: Patent. Peak systolic velocity 54 cm/s. Left: Common carotid: Atherosclerosis. Peak systolic velocity 55 cm/s. Internal carotid artery: Atherosclerosis of the proximal ICA. Peak systolic velocity 130 cm/s. Systolic ratio: 2.4. External carotid artery: Atherosclerosis. Peak systolic velocity 90 cm/s. Bilateral antegrade flow within the vertebral arteries. Reference ranges: Stenosis measurements are compared to reference velocity parameters. Primary parameters: ICA peak systolic velocity (PSV) < 125 cm/s normal or indicating < 50% stenosis; ICA PSV 125-230 cm/s equivalent to 50-69% stenosis; ICA PSV > 230 cm/s equivalent to greater than or equal to 70% stenosis. Additional parameters: ICA PSV to common carotid artery PSV ratio < 2 normal or < 50% stenosis; 2-4 equates to 50-69% stenosis, > 4 equates to greater than or equal to 70% stenosis. Normal ICA end-diastolic velocity less than 40. Blood pressure Not performed. IMPRESSION: 1. 50-69% stenosis of the proximal right internal cerebral artery 2. 50-69% stenosis of the proximal left internal carotid artery. Electronically signed by: Jero Christianson M.D. 02/18/2018 10:53 PM Dictated Date/Time: 02/18/2018 10:50 PM
[2018-02-18 23:00] VITALS: BP 165/90; PULSE 93; TEMP 36.6; O2SAT 98; Ht 182.9 cm; Wt 94.2 kg
--- NOTE | 2018-02-18 23:06 | DIAGNOSTIC IMAGING REPORT ---
ABDOMEN NO IV/ORAL CONT (CT) CLINICAL HISTORY: 87 years-old Male presenting with back pain , concern for retroperitoneal bleed. TECHNIQUE: Multidetector CT of the abdomen was performed without the use of intravenous contrast. IV contrast: None. A dose lowering technique was used consistent with the principles of ALARA (as low as reasonably achievable). COMPARISON: CT of the pelvis performed earlier the same day. CT DOSE (mGy.cm): The estimated cumulative dose is 805.10 mGy.cm. FINDINGS: Rn New Grad topogram: Unremarkable. Lung bases: Minimal dependent changes likely atelectasis. Normal heart size. Coronary artery and aortic valve calcification. No pericardial or pleural effusion. 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 Density borderline for hepatic steatosis. Biliary: No gross biliary ductal dilatation allowing for noncontrast technique. Normal gallbladder. Pancreas: Severe parenchymal atrophy. Spleen: Normal noncontrast appearance. Adrenal glands: Normal noncontrast appearance. Kidneys and ureters: Multiple prominent parapelvic cysts suggested, greater on the left. No convincing evidence of hydronephrosis. Mild nonspecific perinephric fat stranding. Nonobstructing 3 mm calculus in the right kidney. Punctate nonobstructing calculus at the upper pole the left kidney. Bowel: Mild stool burden. No bowel obstruction. Peritoneal cavity: No free fluid or intraperitoneal gas. No retroperitoneal hemorrhage. Lymph nodes: No gross lymphadenopathy allowing for noncontrast technique. Vasculature: Atherosclerosis of the normal caliber abdominal aorta. Abdominal wall: Mild body wall edema. Gynecomastia. Musculoskeletal: Degenerative changes of the spine. Evidence of old right rib fracture. IMPRESSION: 1. No evidence of retroperitoneal hemorrhage. No acute intra-abdominal pathology. 2. Bilateral nonobstructing nephrolithiasis. 3. Bibasilar atelectasis. Electronically signed by: Jero Christianson M.D. 02/18/2018 11:05 PM Dictated Date/Time: 02/18/2018 10:59 PM
[2018-02-18] MEDS ORDERED: PHYTONADIONE 5 MG TAB PO STA (23:13)
[2018-02-18] MEDS ORDERED: NSS + 20MEQ KCL 1000ML 1,000 ML IV ONE (23:30)
[2018-02-18 23:32] LABS: HEMATOCRIT 32.9 % (42-52); HEMOGLOBIN 11.1 g/dL (14.0-18.0)
--- NOTE | 2018-02-19 01:12 | HISTORY & PHYSICAL EXAMINATION ---
DATE OF ADMISSION: 02/18/2018 CHIEF COMPLAINT: Fall as per records, left hip pain. HISTORY OF PRESENT ILLNESS: History obtained from patient, son and records. Patient is a fair historian. Medical history significant for AFib on Coumadin, orthostatic hypotension as per records, hyperlipidemia, hypothyroidism, BPH, history of pituitary macroadenoma status post surgery, PVD, past tobacco abuse, chronic anemia (baseline hemoglobin of 11), TIA as per records, history of diet controlled DM. Recent confinement last May 2015 for sepsis secondary to pneumonia. Last year, the patient noted to have at least 2 syncopal events as per family. More recent one was in October 2017 attributed to syncope, dehydration. As per records, the patient was put on a 2 week Holter monitor which showed A. fib. A few days ago the patient had a fall. Patient denies syncope, although patient's son not sure about patient's reliability. Note of left hip pain. Patient was not moving as much. This morning he had another fall without syncope as per patient, unable to get up. The patient was found by family at home. Patient complaining of left hip, back pain. Denies chest pain, shortness of breath, headache. Patient brought to the Emergency Room. MEDICAL HISTORY: As above. Carotid Dopplers done in July 2006 showed significant plaque 50-69% proximal CARMEN, LICA 2D echo from 2010 showed an EF 60-65%, LVH enlargement, no pulmonary hypertension, PASP 36 mmHg, diastolic dysfunction, mild aortic valve sclerosis. SURGERIES: He has had pituitary surgery, cystoscopy, cataract surgery, scalp tumor resection. HOME MEDICATIONS: Include Coumadin, aspirin, Lipitor, vitamin D3, vitamin B12, furosemide p.r.n., Lasix p.r.n., tamsulosin, Nitrostat, Jantoven. ALLERGIES: RAMIPRIL, GLIMEPIRIDE. FAMILY HISTORY: Hypertension. PERSONAL AND SOCIAL HISTORY: Past smoker. 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 Lives alone. REVIEW OF SYSTEMS: Could not be reliably obtained. PHYSICAL EXAMINATION: VITAL SIGNS: Blood pressure was noted to be 160/100, later 134/74, pulse rate 69, RR 18, temperature 37, sats 99 on room air. GENERAL: Noted to be comfortable, no respiratory distress, episodic confusion during encounter, slightly hard of hearing. SKIN: Pallor, warm. HEENT: Pale palpebral conjunctiva. No ptosis. Dry mucosa. NECK: Supple, nontender. CHEST: Decreased effort, no tenderness. HEART: Irregular. No murmur. ABDOMEN: Some distention and nontender. EXTREMITIES: Tenderness, left thigh. Left lower extremity bigger than the right. NEUROLOGIC: episodic confusion; hearing impairment. No facial asymmetry. Gait and stance not assessed. LABORATORY DATA: Hemoglobin was noted to be 11.8, hematocrit 34.7, white blood cell count 10.3, platelets 179. Sodium 137, potassium 3.5, chloride 103, CO2 28, BUN 81, creatinine 1, glucose 196, CPK 849. Troponin negative. Hemoglobin A1c December 2017 was 6.2. EKG as per my interpretation, rate 80, AFib, no ischemia, low voltage. UA, trace ketones, occult blood. CT head, no acute pathology, pituitary lesion. Cervical spine CT, no acute injury to the spine. Pelvis CT, suspected intramuscular hematoma, left adductor musculature. ASSESSMENT: 1. Recurrent falls. Family concerned about possible unwitnessed syncopal events predisposing patient to falls in light of 2 episodes from last year. Patient denies recent syncopal events this week, however. Possible orthostasis mechanism w hx orthostatic hypotension as per records rule out structural cardiovascular pathology (valvular; carotid occlusion, hx bilateral ICA stenosis 50-69% stenosis from 2005 carotid doppler study), arrhythmia 2. Mild rhabdomyolysis secondary to above 3. traumatic hematoma, left thigh hemodynamically stable Hemoglobin from chronic anemia at baseline 4. Atrial fibrillation, rate controlled on Coumadin. Patient possibly not on rate control agents secondary to history orthostatic hypotension INR Therapeutic 5. Transient ischemic attack as per records 6. DM2, diet controlled, well controlled as of recent outpatient HgA1c. 7. History of pituitary tumor, status post surgery 8. past tobacco abuse. PLAN: PCU RE Possible syncope Check orthostatic vitals 2D echo, carotid Dopplers RE possible syncope IVF, follow CPK Appropriate to hold Coumadin, ASA for now given hematoma. Vitamin K p.o. 1 dose Coumadin anticoagulation per patient upon discharge will need to be reviewed in light of recurrent falls. ISS BG goal 140-180. PT, OT eval. ocial service RE DC planning DVT prophylaxis, SCDs while INR less than 2 while Coumadin on hold. Full code. Patient's son requesting updates from providers. Mr. Miguel Mckeon at [phone]. [facility]
[2018-02-19 02:58] VITALS: BP_SYST 108; BP_SYST 125; BP_SYST 147; BP_DIAS 64; BP_DIAS 69; BP_DIAS 77; PULSE 120; PULSE 77; PULSE 99; TEMP 37.1; O2SAT 99
[2018-02-19] MEDS: TRAMADOL HCL 50 MG TAB PO PRN (04:52)
[2018-02-19] MEDS: LEVOTHYROXINE 100 MCG TAB PO SCH (04:53)
[2018-02-19 05:46] LABS: BASO % 0.2 %; BASO ABS # 0.02 K/uL (0-0.2); EOS % 3.9 %; EOS ABS # 0.35 K/uL (0-0.5); HEMATOCRIT 30.5 % (42-52); IG# 0.02 K/uL (0.00-0.02); LYMPH % 15.2 %; LYMPH ABS # 1.36 K/uL (1.2-3.4); MEAN CELL VOLUME 91.6 fL (80-100); MEAN CORPUSCULAR HGB CONC 32.8 g/dl (32-36); MEAN PLATELET VOLUME 10.5 fL (7.4-10.4); MONO % 10.4 %; MONO ABS # 0.93 K/uL (0.11-0.59); NEUT % 70.1 %; NEUT ABS # 6.27 K/uL (1.4-6.5); PLATELET COUNT 156 K/uL (130-400); RED CELL DISTRIBUTION WIDTH CV 13.5 % (11.5-14.5); RED CELL DISTRIBUTION WIDTH SD 44.8 fL (36.4-46.3); WHITE BLOOD COUNT 8.95 K/uL (4.8-10.8)
[2018-02-19 05:55] LABS: INR 2.4 (0.9-1.1)
[2018-02-19] MEDS ORDERED: PHYTONADIONE INJ 10 MG in SODIUM CHLORIDE 0.9% 50ML 50 ML IV ONE (06:30)
[2018-02-19 07:51] VITALS: BP 136/75; PULSE 84; TEMP 37.3; O2SAT 96
[2018-02-19] MEDS: INSULIN ASPART 100 UNITS/ML 3 ML PEN SC SCH ×4 (07:58→21:00)
[2018-02-19] MEDS: TAMSULOSIN HCL 0.4 MG CAP PO SCH (07:58)
--- NOTE | 2018-02-19 08:53 | Clinical Documentation Query ---
LAQUITA Feldman : CLINICAL DOCUMENTATION QUERY Patient is an 87 year old male admitted for evaluation of repeated falls with associated mild rhabdomyolysis and traumatic hematoma. Admission H&H was 11.8 g/dl and 34.7% (noted to be chronic) with repeat this a.m. of 10.0 g/dl and 30.5%. He is being monitored with serial hematology, received Vitamin K orally x1, and Coumadin has been placed on hold. In your clinical opinion is this patient being managed for: ( x ) Acute blood loss anemia secondary to traumatic hematoma ( ) Not Agree ( ) Other explanation of clinical findings (Please Explain) ( ) Unable to determine (Please Define) ( ) Need to Discuss The medical record reflects the following clinical findings, treatment, and risk factors. Clinical Indicators: As above Treatment:He is being monitored with serial hematology, recieved Vitamin K orally x1, and Coumadin has been placed on hold. Risk Factors: Recurrent falls in the setting of Coumadin therapy Please clarify and document your clinical opinion in the progress notes and discharge summary. Terms such as "probable", "suspected", "likely", "questionable", "possible", or "still to be ruled out" are acceptable. IF IN AGREEMENT, YOU MUST DOCUMENT ABOVE DIAGNOSTIC STATEMENT IN DAILY PROGRESS NOTES AND DISCHARGE SUMMARY. This document is not part of the patient's record. Thank You, Duncan Edouard RN [phone]
--- NOTE | 2018-02-19 09:00 | ECHOCARDIOGRAM REPORT ---
*NOTICE TO RECEIVING REPUBLICAN AGENCY This information is strictly Confidential and protected under [place] law. [place] law prohibits you from making any further disclosure of this information unless further disclosure is expressly permitted by the written consent of the person to whom it pertains or is authorized by law. A general authorization for the release of medical or other information is not sufficient for this purpose. Hospital accepts no responsibility if the information is made available to any other person, INCLUDING THE PATIENT. Interpretation Summary * Name: ROSANNE SANCHEZ Study Date: 02/19/2018 06:44 AM BP: 108/64 mmHg * Patient Location: C.2T\S\S229\S\1 HR: 77 * : 1930 (M/d/yyyy) Gender: Male Height: 72 in * Age: 87 yrs Ethnicity: CA Weight: 192 lb * Ordering Physician: Ignacio Morales * Referring Physician: Self, Referred * Performed By: Muriel Beach RCS * * Reason For Study: SYNCOPE * BSA: 2.1 m2 * -- Conclusions -- * The left ventricle is normal in size. * There is moderate concentric left ventricular hypertrophy. * Left ventricular systolic function is normal. * The left ventricular wall motion is normal. * Ejection Fraction = 65-70%. * Aortic valve sclerosis moderate, without significant aortic valvular stenosis. * Mitral valve leaflets are mildly thickened * There is trace mitral regurgitation. * Doppler findings do not suggest pulmonary hypertension. Procedure Details * A complete two-dimensional transthoracic echocardiogram was performed (2D, M-mode, Doppler and color flow Doppler). Left Ventricle * The left ventricle is normal in size. * There is moderate concentric left ventricular hypertrophy. * Left ventricular systolic function is normal. * Ejection Fraction = 65-70%. * The left ventricular wall motion is normal. Right Ventricle * The right ventricle is normal in size and function. Atria * The left atrium is mildly dilated. * The right atrium is moderately dilated. * No ASD detected; PFO is not assessed. Mitral Valve * Mitral valve leaflets are mildly thickened * There is mild mitral annular calcification. * There is no mitral valve stenosis. * There is trace mitral regurgitation. Tricuspid Valve * The tricuspid valve anatomy is normal. * There is no tricuspid stenosis. * There is trace tricuspid regurgitation. * Doppler findings do not suggest pulmonary hypertension. Aortic Valve * The aortic valve is trileaflet. * Aortic valve sclerosis moderate, without significant aortic valvular stenosis. * No aortic regurgitation is present. Pulmonic Valve * The pulmonic valve is not well visualized. Great Vessels * The aortic root is normal size. Pericardium/Pleural * There is no pericardial effusion. Great Vessels * Normal inferior vena cava diameter and respiratory variation suggests normal central venous pressure. MMode 2D Measurements and Calculations IVSd 1.6 cm IVSs 1.6 cm LVIDd 4.0 cm LVIDs 2.2 cm LVPWd 1.3 cm LVPWs 1.2 cm IVS/LVPW 1.3 FS 44.3 % EDV(Teich) 68.6 ml ESV(Teich) 16.4 ml EF(Teich) 76.1 % EDV(cubed) 62.4 ml ESV(cubed) 10.8 ml EF(cubed) 82.7 % % IVS thick -1.26 % % LVPW thick -7.03 % LV mass(C)d 216.9 grams LV mass(C)dI 103.6 grams/m\S\2 LV mass(C)s 95.1 grams LV mass(C)sI 45.4 grams/m\S\2 SV(Teich) 52.2 ml SI(Teich) 24.9 ml/m\S\2 SV(cubed) 51.6 ml SI(cubed) 24.6 ml/m\S\2 ACS 3.2 cm LA dimension 4.1 cm LVOT diam 2.3 cm LVOT area 4.1 cm\S\2 LVAd ap4 23.5 cm\S\2 LVLd ap4 6.3 cm EDV(MOD-sp4) 73.0 ml EDV(sp4-el) 75.1 ml LVAs ap4 15.0 cm\S\2 LVLs ap4 4.8 cm ESV(MOD-sp4) 38.2 ml ESV(sp4-el) 39.6 ml EF(MOD-sp4) 47.7 % EF(sp4-el) 47.3 % LVAd ap2 23.7 cm\S\2 LVLd ap2 6.3 cm EDV(MOD-sp2) 74.2 ml EDV(sp2-el) 75.6 ml LVAs ap2 13.7 cm\S\2 LVLs ap2 4.7 cm ESV(MOD-sp2) 34.2 ml ESV(sp2-el) 34.0 ml EF(MOD-sp2) 53.9 % EF(sp2-el) 55.1 % LVLd %diff 0.47 % EDV(MOD-bp) 74.3 ml LVLs %diff -3.70 % ESV(MOD-bp) 36.7 ml EF(MOD-bp) 50.6 % SV(MOD-sp4) 34.8 ml SI(MOD-sp4) 16.6 ml/m\S\2 SV(MOD-sp2) 40.0 ml SI(MOD-sp2) 19.1 ml/m\S\2 SV(MOD-bp) 37.6 ml SI(MOD-bp) 18.0 ml/m\S\2 SV(sp4-el) 35.5 ml SI(sp4-el) 17.0 ml/m\S\2 SV(sp2-el) 41.6 ml SI(sp2-el) 19.9 ml/m\S\2 Doppler Measurements and Calculations MV E max maribel 111.1 cm/sec MV P1/2t max maribel 109.6 cm/sec MV P1/2t 71.6 msec MVA(P1/2t) 3.1 cm\S\2 MV dec slope 448.0 cm/sec\S\2 MV dec time 0.30 sec Ao V2 max 165.7 cm/sec Ao max PG 11.0 mmHg Ao max PG (full) 9.5 mmHg DARLENE(V,A) 1.5 cm\S\2 DARLENE(V,D) 1.5 cm\S\2 LV V1 max PG 1.4 mmHg LV V1 max 59.8 cm/sec PA V2 max 63.0 cm/sec PA max PG 1.6 mmHg TR max maribel 259.7 cm/sec
[2018-02-19 12:07] LABS: HEMOGLOBIN 9.8 g/dL (14.0-18.0)
[2018-02-19 12:57] VITALS: BP 107/65; PULSE 80; TEMP 36.6; O2SAT 95
[2018-02-19 15:15] VITALS: BP 97/61; PULSE 80; TEMP 36.7; O2SAT 94
[2018-02-19 18:20] LABS: HEMATOCRIT 29.7 % (42-52); HEMOGLOBIN 9.8 g/dL (14.0-18.0)
[2018-02-19 19:20] VITALS: BP 113/68; PULSE 81; TEMP 36.8; O2SAT 98
[2018-02-19 23:02] VITALS: BP 123/74; PULSE 77; TEMP 36.6; O2SAT 98
--- NOTE | 2018-02-19 23:15 | Progress Note ---
Medicine Progress Note Date & Time of Visit: Feb 19, 2018 at 16:30 . Subjective Admitted yesterday after a fall, possible syncope, left hip injury. Persistent left hip pain, especially with movement or standing. Otherwise, doing well. No fever. No chest pain or palpitations. No cough or shortness of breath. No nausea or vomiting. . Objective Last 8 Hrs Date Time Temp Pulse Resp B/P (MAP) Pulse Ox O2 Delivery O2 Flow Rate FiO2 02/19/18 20:19 Room Air 02/19/18 19:20 36.8 81 20 113/68 (83) 98 Room Air 02/19/18 16:00 Room Air Physical Exam: General-sitting in chair, no distress Lungs- clear to auscultation; no respiratory distress Cardiovascular- irregular; II/ systolic murmur at base; no gallop appreciated ; no JVD; no pretibial edema Abdomen- + bowel sounds, soft, nontender Extremities- no cyanosis; no calf tenderness; hematoma left lateral hip Neuro- alert, oriented; no cogwheel rigidity Skin- warm & dry . Laboratory Results: Last 24 Hours Test 02/18/18 23:29 02/19/18 05:16 02/19/18 06:40 02/19/18 11:50 Bedside Glucose 151 mg/dl 157 mg/dl White Blood Count 8.95 K/uL Red Blood Count 3.33 M/uL Hemoglobin 10.0 g/dL 9.8 g/dL Hematocrit 30.5 % 30.0 % Mean Corpuscular Volume 91.6 fL Mean Corpuscular Hemoglobin 30.0 pg Mean Corpuscular Hemoglobin Concent 32.8 g/dl Platelet Count 156 K/uL Mean Platelet Volume 10.5 fL Neutrophils (%) (Auto) 70.1 % Lymphocytes (%) (Auto) 15.2 % Monocytes (%) (Auto) 10.4 % Eosinophils (%) (Auto) 3.9 % Basophils (%) (Auto) 0.2 % Neutrophils # (Auto) 6.27 K/uL Lymphocytes # (Auto) 1.36 K/uL Monocytes # (Auto) 0.93 K/uL Eosinophils # (Auto) 0.35 K/uL Basophils # (Auto) 0.02 K/uL RDW Standard Deviation 44.8 fL RDW Coefficient of Variation 13.5 % Immature Granulocyte % (Auto) 0.2 % Immature Granulocyte # (Auto) 0.02 K/uL Prothrombin Time 25.2 SECONDS Prothromb Time International Ratio 2.4 Total Creatine Kinase 718 U/L Test 02/19/18 11:55 02/19/18 16:28 02/19/18 18:00 02/19/18 20:33 Bedside Glucose 132 mg/dl 136 mg/dl 126 mg/dl Hemoglobin 9.8 g/dL Hematocrit 29.7 % Assessment & Plan FALL / POSSIBLE SYNCOPE Exact circumstances of fall not clear. Chronic atrial fibrillation with appropriate rate. Head CT negative for apparent stroke / bleed. Noted to be orthostatic. Hold furosemide. Continue tamsulosin with caution. Monitor for arrhythmias. Check fasting cortisol. ORTHOSTATIC HYPOTENSION Possible etiology of fall. Possibly caused / worsened due to blood loss from hematoma LLE. No apparent Parkinson's disease. Hold furosemide. Continue tamsulosin with caution. Monitor H/H. Follow. CHRONIC ATRIAL FIBRILLATION Rate controlled. Hold warfarin due to left hip/thigh hematoma. CAROTID ARTERY DISEASE Carotid duplex demonstrated moderate stenoses of bilateral internal carotid arteries. Continue aspirin and atorvastatin. LEFT HIP PAIN No fractures per plain films or CT. CT demonstrated hematoma left hip/thigh. Hold warfarin. Monitor H&H. PT / OT. DM TYPE 2 Usually well controlled with dietary management. Check hemoglobin A1c. Fasting blood sugar this morning 157. Insulin coverage as needed. HYPOTHYROIDISM Uncertain whether hypothyroidism primary or secondary. Check TSH. Continue levothyroxine. HISTORY PITUITARY ADENOMA Status post resection. Check TSH, cortisol. VTE PROPHYLAXIS On warfarin with therapeutic INR at time of admission. Warfarin being held secondary to hematoma left hip/thigh. SCD's. Ambulate. DISPOSITION Patient hopes to be discharged to home, but family concerned that he will need skilled care or rehab. PT / OT. Consult Case Management. Family Medicine follow-up with Dr. Brush. . Current Inpatient Medications: Current Inpatient Medications Medications (Trade) Dose Ordered Sig/Stephanie Route Start Time Stop Time Status Last Admin Dose Admin Prochlorperazine Edisylate 5 mg/ Syringe 5 ml @ 5 mls/min Q6H PRN IV 02/18/18 21:15 03/20/18 21:14 Tramadol HCl (Ultram Tab) 25 mg Q6H PRN PO 02/18/18 21:15 03/20/18 21:14 02/19/18 04:52 25 MG Acetaminophen (Tylenol Tab) 325 mg Q6H PRN PO 02/18/18 21:15 03/20/18 21:14 Nitroglycerin (Nitrostat Tab) 0.4 mg UD PRN SL 02/18/18 21:15 03/20/18 21:14 Insulin Aspart (novoLOG ASPART) SLIDING SCALE If C... ACHS SC 02/19/18 07:00 03/21/18 06:59 Glucose (Glucose 40% Gel) 15-30 GRAMS 15 GRAMS... UD PRN PO 02/18/18 21:15 03/20/18 21:14 Glucose (Glucose Chew Tab) 4-8 Tablets 4 Tabl... UD PRN PO 02/18/18 21:15 03/20/18 21:14 Dextrose (Dextrose 50% 50ML Syringe) 25-50ML OF 50% DW IV FOR... UD PRN IV 02/18/18 21:15 03/20/18 21:14 Glucagon (Glucagon Inj) 1 mg UD PRN SQ 02/18/18 21:15 03/20/18 21:14 Levothyroxine Sodium (Synthroid Tab) 100 mcg DAILYBB PO 02/19/18 06:00 03/21/18 06:59 02/19/18 04:53 100 MCG Tamsulosin HCl (Flomax Cap) 0.4 mg DAILY PO 02/19/18 09:00 03/21/18 08:59 02/19/18 07:58 0.4 MG Hydromorphone HCl (Dilaudid Inj) 0.25 mg Q4H PRN IV 02/18/18 21:15 03/04/18 21:14
[2018-02-20] VITALS (11 sets, daily range): BP systolic 97–148; BP diastolic 57–77; PULSE 67–91; TEMP 36.6–36.8; O2SAT 91–96
[2018-02-20] MEDS: ACETAMINOPHEN 325 MG TAB PO PRN ×3 (00:41→20:05)
[2018-02-20] MEDS: TRAMADOL HCL 50 MG TAB PO PRN ×3 (00:41→20:04)
[2018-02-20] MEDS: LEVOTHYROXINE 100 MCG TAB PO SCH (06:14)
[2018-02-20] MEDS: INSULIN ASPART 100 UNITS/ML 3 ML PEN SC SCH ×4 (07:00→20:05)
[2018-02-20 07:39] LABS: BASO % 0.3 %; BASO ABS # 0.02 K/uL (0-0.2); EOS % 5.8 %; EOS ABS # 0.37 K/uL (0-0.5); HEMATOCRIT 28.6 % (42-52); HEMOGLOBIN 9.1 g/dL (14.0-18.0); IG# 0.01 K/uL (0.00-0.02); LYMPH % 20.9 %; LYMPH ABS # 1.34 K/uL (1.2-3.4); MEAN CELL VOLUME 91.7 fL (80-100); MEAN CORPUSCULAR HEMOGLOBIN 29.2 pg (25-34); MEAN CORPUSCULAR HGB CONC 31.8 g/dl (32-36); MEAN PLATELET VOLUME 10.4 fL (7.4-10.4); MONO ABS # 0.64 K/uL (0.11-0.59); NEUT % 62.8 %; NEUT ABS # 4.02 K/uL (1.4-6.5); PLATELET COUNT 153 K/uL (130-400); RED CELL DISTRIBUTION WIDTH CV 13.6 % (11.5-14.5); RED CELL DISTRIBUTION WIDTH SD 45.3 fL (36.4-46.3)
[2018-02-20 07:46] LABS: INR 1.2 (0.9-1.1)
[2018-02-20 08:14] LABS: CREATININE 1.06 mg/dl (0.60-1.40); POTASSIUM 3.7 mmol/L (3.5-5.1)
[2018-02-20 08:24] LABS: HEMOGLOBIN A1C 6.2 % (4.5-5.6)
[2018-02-20 08:28] LABS: CORTISOL AM*DRAW BETWEEN 7-9AM 8.82 mcg/dl (4.30-22.40)
[2018-02-20] MEDS: TAMSULOSIN HCL 0.4 MG CAP PO SCH (08:33)
[2018-02-20] MEDS ORDERED: COSYNTROPIN INJ 0.25 MCG in SYRINGE 4 ML IV ONE (17:45)
--- NOTE | 2018-02-20 17:45 | Progress Note ---
Medicine Progress Note Date & Time of Visit: Feb 20, 2018 at 15:50 . Subjective No fever. Blood pressures low at times. No syncope or presyncope. No chest pain, palpitations. No cough or shortness of breath. No nausea or vomiting. Persistent hip pain. Requires 2 staff members for assistance. . Objective Last 8 Hrs Date Time Temp Pulse Resp B/P (MAP) Pulse Ox O2 Delivery O2 Flow Rate FiO2 02/20/18 16:59 91 129/70 (89) 02/20/18 16:59 84 127/77 (94) 02/20/18 16:58 77 129/65 (86) 02/20/18 16:00 95 Room Air 02/20/18 15:36 36.6 67 16 97/57 (70) 94 Room Air 02/20/18 12:00 96 Room Air 02/20/18 11:02 36.8 73 20 107/62 (77) 91 Room Air Physical Exam: General-sitting in chair, no distress Lungs- clear to auscultation; no respiratory distress Cardiovascular- irregular; II/ systolic murmur at base; no gallop appreciated ; no JVD; no pretibial edema Abdomen- + bowel sounds, soft, nontender Extremities- no cyanosis; no calf tenderness; hematoma left lateral hip Neuro- alert, oriented Skin- warm & dry . Laboratory Results: Last 24 Hours Test 02/19/18 18:00 02/19/18 20:33 02/20/18 07:16 02/20/18 08:02 Hemoglobin 9.8 g/dL 9.1 g/dL Hematocrit 29.7 % 28.6 % Bedside Glucose 126 mg/dl 126 mg/dl White Blood Count 6.40 K/uL Red Blood Count 3.12 M/uL Mean Corpuscular Volume 91.7 fL Mean Corpuscular Hemoglobin 29.2 pg Mean Corpuscular Hemoglobin Concent 31.8 g/dl Platelet Count 153 K/uL Mean Platelet Volume 10.4 fL Neutrophils (%) (Auto) 62.8 % Lymphocytes (%) (Auto) 20.9 % Monocytes (%) (Auto) 10.0 % Eosinophils (%) (Auto) 5.8 % Basophils (%) (Auto) 0.3 % Neutrophils # (Auto) 4.02 K/uL Lymphocytes # (Auto) 1.34 K/uL Monocytes # (Auto) 0.64 K/uL Eosinophils # (Auto) 0.37 K/uL Basophils # (Auto) 0.02 K/uL RDW Standard Deviation 45.3 fL RDW Coefficient of Variation 13.6 % Immature Granulocyte % (Auto) 0.2 % Immature Granulocyte # (Auto) 0.01 K/uL Prothrombin Time 12.9 SECONDS Prothromb Time International Ratio 1.2 Sodium Level 139 mmol/L Potassium Level 3.7 mmol/L Chloride Level 105 mmol/L Carbon Dioxide Level 27 mmol/L Anion Gap 6.0 mmol/L Blood Urea Nitrogen 26 mg/dl Creatinine 1.06 mg/dl Est Creatinine Clear Calc Drug Dose 51.9 ml/min Estimated GFR () 71.8 Estimated GFR (Non- 61.9 BUN/Creatinine Ratio 24.3 Random Glucose 110 mg/dl Estimated Average Glucose 131 mg/dl Hemoglobin A1c 6.2 % Calcium Level 8.0 mg/dl Total Creatine Kinase 419 U/L Vitamin B12 Level 1208 pg/mL Thyroid Stimulating Hormone (TSH) 0.249 uIu/ml Free Thyroxine 0.90 ng/dl Free Triiodothyronine 1.24 pg/ml Cortisol AM Sample 8.82 mcg/dl Test 02/20/18 10:59 02/20/18 16:13 Bedside Glucose 134 mg/dl 160 mg/dl Assessment & Plan FALL / POSSIBLE SYNCOPE Exact circumstances of fall not clear. Chronic atrial fibrillation with appropriate rate. Head CT negative for apparent stroke / bleed. Noted to be orthostatic. Holding furosemide. Continue tamsulosin with caution. Monitor for arrhythmias. Fasting cortisol relatively low- check Cortrosyn stim test. ORTHOSTATIC HYPOTENSION Possible etiology of fall. Possibly caused / worsened due to blood loss from hematoma LLE. No apparent Parkinson's disease. Hold furosemide. Continue tamsulosin with caution. Monitor H/H. Follow. CHRONIC ATRIAL FIBRILLATION Rate controlled. Hold warfarin due to left hip/thigh hematoma. CAROTID ARTERY DISEASE Carotid duplex demonstrated moderate stenoses of bilateral internal carotid arteries. Continue aspirin and atorvastatin. LEFT HIP PAIN / HEMATOM No fractures per plain films or CT. CT demonstrated hematoma left hip/thigh. Hold warfarin. Hemoglobin 11.8 --> --> 9.1. Continue to monitor H&H. PT / OT. DM TYPE 2 Usually well controlled with dietary management. Hemoglobin A1c = 6.2. Fasting blood sugar this morning 126. Insulin coverage as needed. HYPOTHYROIDISM Uncertain whether hypothyroidism primary or secondary. TSH slightly low at 0.249. Free T3 low at 1.24; free T4 low-normal at 0.9. Increase levothyroxine to 125 mcg. HISTORY PITUITARY ADENOMA Status post resection. Management of hypothyroidism as discussed above. Morning cortisol relatively low at 8.82. Check Cortrosyn stim test. VTE PROPHYLAXIS On warfarin with therapeutic INR at time of admission. Warfarin being held secondary to hematoma left hip/thigh. SCD's. Ambulate. DISPOSITION Patient hopes to be discharged to home, but family concerned that he will need skilled care or rehab. Currently requires 2 person assist. PT / OT. Consult Case Management. Family Medicine follow-up with Dr. Brush. . Current Inpatient Medications: Current Inpatient Medications Medications (Trade) Dose Ordered Sig/Stephanie Route Start Time Stop Time Status Last Admin Dose Admin Prochlorperazine Edisylate 5 mg/ Syringe 5 ml @ 5 mls/min Q6H PRN IV 02/18/18 21:15 03/20/18 21:14 Tramadol HCl (Ultram Tab) 25 mg Q6H PRN PO 02/18/18 21:15 03/20/18 21:14 02/20/18 13:43 25 MG Acetaminophen (Tylenol Tab) 325 mg Q6H PRN PO 02/18/18 21:15 03/20/18 21:14 02/20/18 08:33 325 MG Nitroglycerin (Nitrostat Tab) 0.4 mg UD PRN SL 02/18/18 21:15 03/20/18 21:14 Insulin Aspart (novoLOG ASPART) SLIDING SCALE If C... ACHS SC 02/19/18 07:00 03/21/18 06:59 Glucose (Glucose 40% Gel) 15-30 GRAMS 15 GRAMS... UD PRN PO 02/18/18 21:15 03/20/18 21:14 Glucose (Glucose Chew Tab) 4-8 Tablets 4 Tabl... UD PRN PO 02/18/18 21:15 03/20/18 21:14 Dextrose (Dextrose 50% 50ML Syringe) 25-50ML OF 50% DW IV FOR... UD PRN IV 02/18/18 21:15 03/20/18 21:14 Glucagon (Glucagon Inj) 1 mg UD PRN SQ 02/18/18 21:15 03/20/18 21:14 Levothyroxine Sodium (Synthroid Tab) 100 mcg DAILYBB PO 02/19/18 06:00 03/21/18 06:59 02/20/18 06:14 100 MCG Tamsulosin HCl (Flomax Cap) 0.4 mg DAILY PO 02/19/18 09:00 03/21/18 08:59 02/20/18 08:33 0.4 MG Hydromorphone HCl (Dilaudid Inj) 0.25 mg Q4H PRN IV 02/18/18 21:15 03/04/18 21:14
[2018-02-21] VITALS (10 sets, daily range): BP systolic 106–158; BP diastolic 58–77; PULSE 80–91; TEMP 36.5–37.6; O2SAT 92–97
[2018-02-21] MEDS: LEVOTHYROXINE 125 MCG TAB PO SCH (05:47)
[2018-02-21] MEDS: INSULIN ASPART 100 UNITS/ML 3 ML PEN SC SCH ×4 (07:00→21:00)
[2018-02-21 07:58] LABS: BASO % 0.4 %; BASO ABS # 0.03 K/uL (0-0.2); EOS % 4.8 %; EOS ABS # 0.41 K/uL (0-0.5); HEMATOCRIT 27.5 % (42-52); HEMOGLOBIN 9.3 g/dL (14.0-18.0); IG# 0.02 K/uL (0.00-0.02); LYMPH % 14.2 %; MEAN CELL VOLUME 91.4 fL (80-100); MEAN CORPUSCULAR HEMOGLOBIN 30.9 pg (25-34); MEAN CORPUSCULAR HGB CONC 33.8 g/dl (32-36); MONO % 9.6 %; MONO ABS # 0.81 K/uL (0.11-0.59); NEUT % 70.8 %; NEUT ABS # 5.99 K/uL (1.4-6.5); PLATELET COUNT 167 K/uL (130-400); RED CELL DISTRIBUTION WIDTH CV 13.5 % (11.5-14.5); RED CELL DISTRIBUTION WIDTH SD 44.8 fL (36.4-46.3); WHITE BLOOD COUNT 8.46 K/uL (4.8-10.8)
[2018-02-21] MEDS ORDERED: COSYNTROPIN INJ 250 MCG in SYRINGE 4 ML IV ONE (08:00)
[2018-02-21] MEDS: TAMSULOSIN HCL 0.4 MG CAP PO SCH (08:04)
[2018-02-21] MEDS: ACETAMINOPHEN 325 MG TAB PO PRN (08:21)
[2018-02-21 08:32] LABS: CREATININE 1.01 mg/dl (0.60-1.40); POTASSIUM 3.9 mmol/L (3.5-5.1)
[2018-02-21] MEDS: TRAMADOL HCL 50 MG TAB PO PRN (16:36)
[2018-02-21] MEDS ORDERED: POLYETHYLENE (MIRALAX) 17 GM PACK PO PRN (17:00)
[2018-02-21] MEDS: BISACODYL 5 MG TABEC PO PRN (17:43)
--- NOTE | 2018-02-21 20:41 | Progress Note ---
Medicine Progress Note Date & Time of Visit: Feb 21, 2018 at 14:20 . Subjective Ongoing left hip pain with standing or moving. Still requires assistance with activities. Mild lightheadedness upon standing. No fever. No chest pain, cough, shortness of breath. No nausea, vomiting, diarrhea. No bowel movement since admission. . Objective Last 8 Hrs Date Time Temp Pulse Resp B/P (MAP) Pulse Ox O2 Delivery O2 Flow Rate FiO2 02/21/18 16:15 Room Air 02/21/18 16:15 36.5 80 16 158/66 (96) 97 Room Air 02/21/18 16:00 95 Room Air Physical Exam: General-sitting in chair, no distress Lungs- clear to auscultation; no respiratory distress Cardiovascular- irregular; II/ systolic murmur at base; no gallop appreciated ; no JVD; no pretibial edema Abdomen- + bowel sounds, soft, nontender Extremities- no cyanosis; no calf tenderness Neuro- alert, oriented Skin- warm & dry . Laboratory Results: Last 24 Hours Test 02/21/18 06:44 02/21/18 07:33 02/21/18 11:27 02/21/18 16:03 Bedside Glucose 104 mg/dl 145 mg/dl 126 mg/dl White Blood Count 8.46 K/uL Red Blood Count 3.01 M/uL Hemoglobin 9.3 g/dL Hematocrit 27.5 % Mean Corpuscular Volume 91.4 fL Mean Corpuscular Hemoglobin 30.9 pg Mean Corpuscular Hemoglobin Concent 33.8 g/dl Platelet Count 167 K/uL Mean Platelet Volume 10.0 fL Neutrophils (%) (Auto) 70.8 % Lymphocytes (%) (Auto) 14.2 % Monocytes (%) (Auto) 9.6 % Eosinophils (%) (Auto) 4.8 % Basophils (%) (Auto) 0.4 % Neutrophils # (Auto) 5.99 K/uL Lymphocytes # (Auto) 1.20 K/uL Monocytes # (Auto) 0.81 K/uL Eosinophils # (Auto) 0.41 K/uL Basophils # (Auto) 0.03 K/uL RDW Standard Deviation 44.8 fL RDW Coefficient of Variation 13.5 % Immature Granulocyte % (Auto) 0.2 % Immature Granulocyte # (Auto) 0.02 K/uL Sodium Level 137 mmol/L Potassium Level 3.9 mmol/L Chloride Level 104 mmol/L Carbon Dioxide Level 29 mmol/L Anion Gap 4.0 mmol/L Blood Urea Nitrogen 26 mg/dl Creatinine 1.01 mg/dl Est Creatinine Clear Calc Drug Dose 59.1 ml/min Estimated GFR () 76.1 Estimated GFR (Non- 65.6 BUN/Creatinine Ratio 26.0 Random Glucose 105 mg/dl Calcium Level 8.0 mg/dl Cortisol Response to Stimulation Cortisol Baseline Test 02/21/18 20:07 Bedside Glucose 144 mg/dl Assessment & Plan FALL / POSSIBLE SYNCOPE Exact circumstances of fall not clear. Chronic atrial fibrillation with appropriate rate. Head CT negative for apparent stroke / bleed. Noted to be orthostatic. Holding furosemide. Continue tamsulosin with caution. Monitored for arrhythmias- atrial fibrillation with appropriate ventricular rate. Fasting cortisol relatively low- Cortrosyn stim test OK. ORTHOSTATIC HYPOTENSION Possible etiology of fall. Possibly caused / worsened due to blood loss from hematoma LLE. No apparent Parkinson's disease. Hold furosemide. Continue tamsulosin with caution. Monitor H/H. Follow. CHRONIC ATRIAL FIBRILLATION Rate controlled. Hold warfarin due to left hip/thigh hematoma. CAROTID ARTERY DISEASE Carotid duplex demonstrated moderate stenoses of bilateral internal carotid arteries. Continue aspirin and atorvastatin. LEFT HIP PAIN / HEMATOMA No fractures per plain films or CT. CT demonstrated hematoma left hip/thigh. Hold warfarin. Hemoglobin 11.8 --> --> 9.3. Continue to monitor H&H. PT / OT. ANEMIA Hemoglobin 11.8 --> --> 9.3. Acute blood loss anemia secondary to hematoma left hip /thigh. Continue to monitor H&H. DM TYPE 2 Usually well controlled with dietary management. Hemoglobin A1c = 6.2. Fasting blood sugar this morning 104. Insulin coverage as needed. HYPOTHYROIDISM Uncertain whether hypothyroidism primary or secondary. TSH slightly low at 0.249. Free T3 low at 1.24; free T4 low-normal at 0.9. Increased levothyroxine to 125 mcg. HISTORY PITUITARY ADENOMA Status post resection. Management of hypothyroidism as discussed above. A.M. cortisol relatively low at 8.82. Cortrosyn stim test demonstrated adequate response. VTE PROPHYLAXIS On warfarin with therapeutic INR at time of admission. Warfarin being held secondary to hematoma left hip/thigh. SCD's. Ambulate. DISPOSITION Patient hopes to be discharged to home, but family concerned that he will need skilled care or rehab. Currently requires 2 person assist. PT / OT. Consult Case Management. Family Medicine follow-up with Dr. Brush. . Current Inpatient Medications: Current Inpatient Medications Medications (Trade) Dose Ordered Sig/Stephanie Route Start Time Stop Time Status Last Admin Dose Admin Prochlorperazine Edisylate 5 mg/ Syringe 5 ml @ 5 mls/min Q6H PRN IV 02/18/18 21:15 03/20/18 21:14 Tramadol HCl (Ultram Tab) 25 mg Q6H PRN PO 02/18/18 21:15 03/20/18 21:14 02/21/18 16:36 25 MG Acetaminophen (Tylenol Tab) 325 mg Q6H PRN PO 02/18/18 21:15 03/20/18 21:14 02/21/18 08:21 325 MG Nitroglycerin (Nitrostat Tab) 0.4 mg UD PRN SL 02/18/18 21:15 03/20/18 21:14 Insulin Aspart (novoLOG ASPART) SLIDING SCALE If C... ACHS SC 02/19/18 07:00 03/21/18 06:59 Glucose (Glucose 40% Gel) 15-30 GRAMS 15 GRAMS... UD PRN PO 02/18/18 21:15 03/20/18 21:14 Glucose (Glucose Chew Tab) 4-8 Tablets 4 Tabl... UD PRN PO 02/18/18 21:15 03/20/18 21:14 Dextrose (Dextrose 50% 50ML Syringe) 25-50ML OF 50% DW IV FOR... UD PRN IV 02/18/18 21:15 03/20/18 21:14 Glucagon (Glucagon Inj) 1 mg UD PRN SQ 02/18/18 21:15 03/20/18 21:14 Tamsulosin HCl (Flomax Cap) 0.4 mg DAILY PO 02/19/18 09:00 03/21/18 08:59 02/21/18 08:04 0.4 MG Hydromorphone HCl (Dilaudid Inj) 0.25 mg Q4H PRN IV 02/18/18 21:15 03/04/18 21:14 Levothyroxine Sodium (Synthroid Tab) 125 mcg DAILYBB PO 02/21/18 06:00 03/23/18 05:59 02/21/18 05:47 125 MCG Senna/Docusate Sodium (Senokot S Tab) 1 tab BID PO 02/21/18 21:00 03/23/18 20:59 Bisacodyl (Dulcolax Tab) 5 mg DAILY PRN PO 02/21/18 17:00 03/23/18 16:59 02/21/18 17:43 5 MG Polyethylene (Miralax Powder Packet) 17 gm BID PRN PO 02/21/18 17:00 03/23/18 16:59
[2018-02-21] MEDS ORDERED: SODIUM CHLORIDE 0.9% 1000ML 1,000 ML IV SCH (20:45)
[2018-02-21] MEDS: DOCUSATE SODIUM/SENNA 50/8.6MG TAB PO SCH (21:16)
[2018-02-22 00:17] VITALS: BP 154/77; PULSE 80; TEMP 37.2; O2SAT 94
[2018-02-22] MEDS: LEVOTHYROXINE 125 MCG TAB PO SCH (05:28)
[2018-02-22 07:02] LABS: BASO % 0.4 %; BASO ABS # 0.03 K/uL (0-0.2); EOS % 3.5 %; EOS ABS # 0.28 K/uL (0-0.5); HEMATOCRIT 27.4 % (42-52); HEMOGLOBIN 8.9 g/dL (14.0-18.0); IG# 0.02 K/uL (0.00-0.02); LYMPH % 21.1 %; LYMPH ABS # 1.67 K/uL (1.2-3.4); MEAN CELL VOLUME 91.9 fL (80-100); MEAN CORPUSCULAR HEMOGLOBIN 29.9 pg (25-34); MEAN CORPUSCULAR HGB CONC 32.5 g/dl (32-36); MONO % 11.5 %; MONO ABS # 0.91 K/uL (0.11-0.59); NEUT % 63.2 %; PLATELET COUNT 187 K/uL (130-400); RED CELL DISTRIBUTION WIDTH CV 13.5 % (11.5-14.5); RED CELL DISTRIBUTION WIDTH SD 45.2 fL (36.4-46.3); WHITE BLOOD COUNT 7.91 K/uL (4.8-10.8)
[2018-02-22 07:14] VITALS: BP 154/75; PULSE 79; TEMP 36.6; O2SAT 95
[2018-02-22 07:17] LABS: CREATININE 1.14 mg/dl (0.60-1.40); POTASSIUM 3.6 mmol/L (3.5-5.1)
[2018-02-22] MEDS ORDERED: LACTATED RINGER'S 1000ML 1,000 ML IV SCH (07:45)
[2018-02-22] MEDS: INSULIN ASPART 100 UNITS/ML 3 ML PEN SC SCH ×4 (08:37→20:52)
[2018-02-22] MEDS: DOCUSATE SODIUM/SENNA 50/8.6MG TAB PO SCH ×2 (08:38→20:53)
[2018-02-22] MEDS: BISACODYL 5 MG TABEC PO PRN (08:38)
[2018-02-22] MEDS: TAMSULOSIN HCL 0.4 MG CAP PO SCH (08:38)
[2018-02-22] MEDS: ACETAMINOPHEN 325 MG TAB PO PRN (08:41)
[2018-02-22] MEDS: POLYETHYLENE (MIRALAX) 17 GM PACK PO SCH ×2 (14:04→20:54)
[2018-02-22] MEDS: CAPSAICIN CR 0.075% 60 GM TUBE EXT SCH ×2 (14:04→20:54)
[2018-02-22 15:30] VITALS: BP 160/77; PULSE 83; TEMP 36.5; O2SAT 95
[2018-02-22] MEDS: TRAMADOL HCL 50 MG TAB PO PRN (16:16)
--- NOTE | 2018-02-22 21:01 | Progress Note ---
Medicine Progress Note Date & Time of Visit: Feb 22, 2018 at 10:40 . Subjective Patient's main complaint is burning on the plantar surfaces of both feet. He would like to go home, but still requires assistance with transfers and ambulation. Still having pain in his left thigh, but not as severe. No fever. No chest pain. No cough or shortness of breath. No nausea, vomiting, diarrhea. Voiding without difficulty. . Objective Last 8 Hrs Date Time Temp Pulse Resp B/P (MAP) Pulse Ox O2 Delivery O2 Flow Rate FiO2 02/22/18 16:30 Room Air 02/22/18 15:30 36.5 83 20 160/77 (104) 95 Physical Exam: General- sitting in chair, no distress Lungs- clear to auscultation; no respiratory distress Cardiovascular- irregular; II/ systolic murmur at base; no gallop appreciated ; no JVD; no pretibial edema Abdomen- + bowel sounds, soft, nontender Extremities- no cyanosis; no calf tenderness; hematoma/tenderness left medial thigh Neuro- alert, oriented Skin- warm & dry . Laboratory Results: Last 24 Hours Test 02/22/18 06:33 02/22/18 07:37 02/22/18 11:42 02/22/18 16:24 White Blood Count 7.91 K/uL Red Blood Count 2.98 M/uL Hemoglobin 8.9 g/dL Hematocrit 27.4 % Mean Corpuscular Volume 91.9 fL Mean Corpuscular Hemoglobin 29.9 pg Mean Corpuscular Hemoglobin Concent 32.5 g/dl Platelet Count 187 K/uL Mean Platelet Volume 10.0 fL Neutrophils (%) (Auto) 63.2 % Lymphocytes (%) (Auto) 21.1 % Monocytes (%) (Auto) 11.5 % Eosinophils (%) (Auto) 3.5 % Basophils (%) (Auto) 0.4 % Neutrophils # (Auto) 5.00 K/uL Lymphocytes # (Auto) 1.67 K/uL Monocytes # (Auto) 0.91 K/uL Eosinophils # (Auto) 0.28 K/uL Basophils # (Auto) 0.03 K/uL RDW Standard Deviation 45.2 fL RDW Coefficient of Variation 13.5 % Immature Granulocyte % (Auto) 0.3 % Immature Granulocyte # (Auto) 0.02 K/uL Acanthocytes 1+ Sodium Level 138 mmol/L Potassium Level 3.6 mmol/L Chloride Level 106 mmol/L Carbon Dioxide Level 27 mmol/L Anion Gap 5.0 mmol/L Blood Urea Nitrogen 27 mg/dl Creatinine 1.14 mg/dl Est Creatinine Clear Calc Drug Dose 52.3 ml/min Estimated GFR () 65.7 Estimated GFR (Non- 56.7 BUN/Creatinine Ratio 23.5 Random Glucose 112 mg/dl Calcium Level 8.0 mg/dl Bedside Glucose 121 mg/dl 124 mg/dl 103 mg/dl Test 02/22/18 19:57 Bedside Glucose 150 mg/dl Assessment & Plan FALL / POSSIBLE SYNCOPE Exact circumstances of fall not clear. Chronic atrial fibrillation with appropriate rate. Head CT negative for apparent stroke / bleed. Noted to be orthostatic. Continue to hold furosemide. Continue tamsulosin with caution. Monitored for arrhythmias- atrial fibrillation with appropriate ventricular rate. Fasting cortisol relatively low- Cortrosyn stim test OK. ORTHOSTATIC HYPOTENSION Possible etiology of fall. Possibly caused / worsened due to blood loss from hematoma LLE. No apparent Parkinson's disease. Hold furosemide. Continue tamsulosin with caution. Monitor H/H. Follow. CHRONIC ATRIAL FIBRILLATION Rate controlled. Hold warfarin due to left thigh hematoma. CAROTID ARTERY DISEASE Carotid duplex demonstrated moderate stenoses of bilateral internal carotid arteries. Continue aspirin and atorvastatin. LEFT HIP PAIN / ADDUCTOR HEMATOMA No fractures per plain films or CT. CT demonstrated hematoma left hip/thigh. Hold warfarin. Hemoglobin 11.8 --> --> 8.9. Continue to monitor H&H. PT / OT. ANEMIA Hemoglobin 11.8 --> --> 98.9. Acute blood loss anemia secondary to hematoma left hip /thigh. Continue to monitor H&H. DM TYPE 2 Usually well controlled with dietary management. Hemoglobin A1c = 6.2. Fasting blood sugar this morning 121. Insulin coverage as needed. HYPOTHYROIDISM Uncertain whether hypothyroidism primary or secondary. TSH slightly low at 0.249. Free T3 low at 1.24; free T4 low-normal at 0.9. Increased levothyroxine to 125 mcg. HISTORY PITUITARY ADENOMA Status post resection. Management of hypothyroidism as discussed above. A.M. cortisol relatively low at 8.82. Cortrosyn stim test demonstrated adequate response. NEUROPATHY Check vitamin B12. Probably best to avoid medications with systemic side effects such as tricyclic antidepressants and anticonvulsants. Try capsaicin cream. VTE PROPHYLAXIS On warfarin with therapeutic INR at time of admission. Warfarin being held secondary to hematoma left hip/thigh. SCD's. Ambulate. DISPOSITION Patient hopes to be discharged to home, but family concerned that he will need skilled care or rehab. Currently requiring assistance for ADLs. PT and OT evaluations performed; skilled care or inpatient rehab recommended. Case Management consulted. Family Medicine follow-up with Dr. Brush. . Current Inpatient Medications: Current Inpatient Medications Medications (Trade) Dose Ordered Sig/Stephanie Route Start Time Stop Time Status Last Admin Dose Admin Prochlorperazine Edisylate 5 mg/ Syringe 5 ml @ 5 mls/min Q6H PRN IV 02/18/18 21:15 03/20/18 21:14 Tramadol HCl (Ultram Tab) 25 mg Q6H PRN PO 02/18/18 21:15 03/20/18 21:14 02/22/18 16:16 25 MG Acetaminophen (Tylenol Tab) 325 mg Q6H PRN PO 02/18/18 21:15 03/20/18 21:14 02/22/18 08:41 325 MG Nitroglycerin (Nitrostat Tab) 0.4 mg UD PRN SL 02/18/18 21:15 03/20/18 21:14 Insulin Aspart (novoLOG ASPART) SLIDING SCALE If C... ACHS SC 02/19/18 07:00 03/21/18 06:59 Glucose (Glucose 40% Gel) 15-30 GRAMS 15 GRAMS... UD PRN PO 02/18/18 21:15 03/20/18 21:14 Glucose (Glucose Chew Tab) 4-8 Tablets 4 Tabl... UD PRN PO 02/18/18 21:15 03/20/18 21:14 Dextrose (Dextrose 50% 50ML Syringe) 25-50ML OF 50% DW IV FOR... UD PRN IV 02/18/18 21:15 03/20/18 21:14 Glucagon (Glucagon Inj) 1 mg UD PRN SQ 02/18/18 21:15 03/20/18 21:14 Tamsulosin HCl (Flomax Cap) 0.4 mg DAILY PO 02/19/18 09:00 03/21/18 08:59 02/22/18 08:38 0.4 MG Hydromorphone HCl (Dilaudid Inj) 0.25 mg Q4H PRN IV 02/18/18 21:15 03/04/18 21:14 02/22/18 19:50 0.25 MG Levothyroxine Sodium (Synthroid Tab) 125 mcg DAILYBB PO 02/21/18 06:00 03/23/18 05:59 02/22/18 05:28 125 MCG Senna/Docusate Sodium (Senokot S Tab) 1 tab BID PO 02/21/18 21:00 03/23/18 20:59 02/22/18 20:53 1 TAB Bisacodyl (Dulcolax Tab) 5 mg DAILY PRN PO 02/21/18 17:00 03/23/18 16:59 02/22/18 08:38 5 MG Polyethylene (Miralax Powder Packet) 17 gm BID PRN PO 02/21/18 17:00 03/23/18 16:59 02/21/18 21:26 17 GM Polyethylene (Miralax Powder Packet) 17 gm TID PO 02/22/18 14:00 03/24/18 13:59 02/22/18 14:04 17 GM Capsaicin (Zostrix Crm) 1 appln TID EXT 02/22/18 14:00 03/24/18 13:59 02/22/18 20:54 1 APPLN
[2018-02-23 00:16] VITALS: BP 162/79; PULSE 88; TEMP 37; O2SAT 93
[2018-02-23] MEDS: LEVOTHYROXINE 125 MCG TAB PO SCH (06:29)
[2018-02-23 07:13] LABS: BASO % 0.4 %; BASO ABS # 0.04 K/uL (0-0.2); EOS % 2.2 %; EOS ABS # 0.22 K/uL (0-0.5); HEMATOCRIT 28.8 % (42-52); HEMOGLOBIN 9.6 g/dL (14.0-18.0); IG# 0.04 K/uL (0.00-0.02); LYMPH % 13.7 %; LYMPH ABS # 1.39 K/uL (1.2-3.4); MEAN CELL VOLUME 91.4 fL (80-100); MEAN CORPUSCULAR HEMOGLOBIN 30.5 pg (25-34); MEAN CORPUSCULAR HGB CONC 33.3 g/dl (32-36); MEAN PLATELET VOLUME 9.1 fL (7.4-10.4); MONO % 12.3 %; MONO ABS # 1.25 K/uL (0.11-0.59); NEUT ABS # 7.22 K/uL (1.4-6.5); PLATELET COUNT 191 K/uL (130-400); RED CELL DISTRIBUTION WIDTH CV 13.5 % (11.5-14.5); WHITE BLOOD COUNT 10.16 K/uL (4.8-10.8)
[2018-02-23 07:21] LABS: INR 1.1 (0.9-1.1)
[2018-02-23 07:49] LABS: CALCIUM 8.2 mg/dl (8.5-10.1); CREATININE 1.03 mg/dl (0.60-1.40); POTASSIUM 3.6 mmol/L (3.5-5.1)
[2018-02-23 07:52] VITALS: BP 145/69; PULSE 81; TEMP 36.6; O2SAT 95
[2018-02-23] MEDS: INSULIN ASPART 100 UNITS/ML 3 ML PEN SC SCH ×4 (07:56→20:54)
[2018-02-23] MEDS: POLYETHYLENE (MIRALAX) 17 GM PACK PO SCH ×3 (07:56→20:54)
[2018-02-23] MEDS: DOCUSATE SODIUM/SENNA 50/8.6MG TAB PO SCH ×2 (07:57→20:54)
[2018-02-23] MEDS: TAMSULOSIN HCL 0.4 MG CAP PO SCH (07:57)
[2018-02-23] MEDS: CAPSAICIN CR 0.075% 60 GM TUBE EXT SCH ×3 (07:57→20:54)
[2018-02-23 14:58] VITALS: BP 142/81; PULSE 89; TEMP 36.9; O2SAT 97
[2018-02-23] MEDS: TRAMADOL HCL 50 MG TAB PO PRN (16:19)
[2018-02-23] MEDS ORDERED: WARFARIN SOD 5 MG TAB PO ONE (19:41)
--- NOTE | 2018-02-23 19:41 | Progress Note ---
Medicine Progress Note Date & Time of Visit: Feb 23, 2018 at 10:30 . Subjective Still having pain in his left thigh. No fever. No chest pain. No cough or shortness of breath. No nausea, vomiting, diarrhea. Voiding without difficulty. Neuropathic pain improved with capsaicin cream. . Objective Last 8 Hrs Date Time Temp Pulse Resp B/P (MAP) Pulse Ox O2 Delivery O2 Flow Rate FiO2 02/23/18 16:30 Room Air 02/23/18 14:58 36.9 89 20 142/81 (101) 97 Room Air Physical Exam: General- sitting in chair, no distress Lungs- clear to auscultation; no respiratory distress Cardiovascular- irregular; II/ systolic murmur at base; no gallop appreciated ; no JVD; no pretibial edema Abdomen- + bowel sounds, soft, nontender Extremities- no cyanosis; no calf tenderness; hematoma/tenderness left medial thigh Neuro- alert, oriented Skin- warm & dry . Laboratory Results: Last 24 Hours Test 02/22/18 19:57 02/23/18 07:02 02/23/18 07:31 02/23/18 11:49 Bedside Glucose 150 mg/dl 120 mg/dl 129 mg/dl White Blood Count 10.16 K/uL Red Blood Count 3.15 M/uL Hemoglobin 9.6 g/dL Hematocrit 28.8 % Mean Corpuscular Volume 91.4 fL Mean Corpuscular Hemoglobin 30.5 pg Mean Corpuscular Hemoglobin Concent 33.3 g/dl Platelet Count 191 K/uL Mean Platelet Volume 9.1 fL Neutrophils (%) (Auto) 71.0 % Lymphocytes (%) (Auto) 13.7 % Monocytes (%) (Auto) 12.3 % Eosinophils (%) (Auto) 2.2 % Basophils (%) (Auto) 0.4 % Neutrophils # (Auto) 7.22 K/uL Lymphocytes # (Auto) 1.39 K/uL Monocytes # (Auto) 1.25 K/uL Eosinophils # (Auto) 0.22 K/uL Basophils # (Auto) 0.04 K/uL RDW Standard Deviation 45.0 fL RDW Coefficient of Variation 13.5 % Immature Granulocyte % (Auto) 0.4 % Immature Granulocyte # (Auto) 0.04 K/uL Prothrombin Time 11.5 SECONDS Prothromb Time International Ratio 1.1 Sodium Level 138 mmol/L Potassium Level 3.6 mmol/L Chloride Level 103 mmol/L Carbon Dioxide Level 28 mmol/L Anion Gap 7.0 mmol/L Blood Urea Nitrogen 23 mg/dl Creatinine 1.03 mg/dl Est Creatinine Clear Calc Drug Dose 57.9 ml/min Estimated GFR () 74.3 Estimated GFR (Non- 64.1 BUN/Creatinine Ratio 22.5 Random Glucose 115 mg/dl Calcium Level 8.2 mg/dl Vitamin B12 Level 1390 pg/mL Test 02/23/18 16:38 Bedside Glucose 111 mg/dl Assessment & Plan FALL / POSSIBLE SYNCOPE Exact circumstances of fall not clear. Chronic atrial fibrillation with appropriate rate. Head CT negative for apparent stroke / bleed. Noted to be orthostatic. Continue to hold furosemide. Continue tamsulosin with caution. Monitored for arrhythmias- atrial fibrillation with appropriate ventricular rate. Fasting cortisol relatively low- Cortrosyn stim test OK. ORTHOSTATIC HYPOTENSION Possible etiology of fall. Possibly caused / worsened due to blood loss from hematoma LLE. No apparent Parkinson's disease. Hold furosemide. Continue tamsulosin with caution. Monitor H/H. Follow. CHRONIC ATRIAL FIBRILLATION Rate controlled. Warfarin has been on hold due to left thigh hematoma. Has now been 5 days since fall. Resume warfarin at a slightly reduced dose of 5 mg daily; follow H/H, INR closely. CAROTID ARTERY DISEASE Carotid duplex demonstrated moderate stenoses of bilateral internal carotid arteries. Continue aspirin and atorvastatin. LEFT HIP PAIN / ADDUCTOR HEMATOMA No fractures per plain films or CT. CT demonstrated hematoma left hip/thigh. Hold warfarin. Hemoglobin 11.8 --> --> 8.9 --> 9.6. Continue to monitor H&H. PT / OT. ANEMIA Hemoglobin 11.8 --> --> 8.9 --> 9.6. Acute blood loss anemia secondary to hematoma left hip /thigh. Continue to monitor H&H. DM TYPE 2 Usually well controlled with dietary management. Hemoglobin A1c = 6.2. Fasting blood sugar this morning 120. Insulin coverage as needed. HISTORY PITUITARY ADENOMA Status post resection. Management of hypothyroidism as discussed above. A.M. cortisol relatively low at 8.82. Cortrosyn stim test demonstrated adequate response. HYPOTHYROIDISM Uncertain whether hypothyroidism primary or secondary. TSH slightly low at 0.249. Free T3 low at 1.24; free T4 low-normal at 0.9. Increased levothyroxine to 125 mcg. NEUROPATHY Vitamin B12 normal. Probably best to avoid medications with systemic side effects such as tricyclic antidepressants and anticonvulsants. Improved with capsaicin cream. VTE PROPHYLAXIS On warfarin with therapeutic INR at time of admission. Warfarin held secondary to hematoma left hip/thigh. SCD's. Ambulate. Resuming warfarin as noted above. DISPOSITION Patient hoped to be discharged to home, but family concerned that he will need skilled care or rehab because of multiple falls. Currently requiring assistance for ADLs. PT and OT evaluations performed; skilled care or inpatient rehab recommended. Case Management consulted. Family Medicine follow-up with Dr. Brush. . Current Inpatient Medications: Current Inpatient Medications Medications (Trade) Dose Ordered Sig/Stephanie Route Start Time Stop Time Status Last Admin Dose Admin Prochlorperazine Edisylate 5 mg/ Syringe 5 ml @ 5 mls/min Q6H PRN IV 02/18/18 21:15 03/20/18 21:14 Tramadol HCl (Ultram Tab) 25 mg Q6H PRN PO 02/18/18 21:15 03/20/18 21:14 02/23/18 16:19 25 MG Acetaminophen (Tylenol Tab) 325 mg Q6H PRN PO 02/18/18 21:15 03/20/18 21:14 02/22/18 08:41 325 MG Nitroglycerin (Nitrostat Tab) 0.4 mg UD PRN SL 02/18/18 21:15 03/20/18 21:14 Insulin Aspart (novoLOG ASPART) SLIDING SCALE If C... ACHS SC 02/19/18 07:00 03/21/18 06:59 Glucose (Glucose 40% Gel) 15-30 GRAMS 15 GRAMS... UD PRN PO 02/18/18 21:15 03/20/18 21:14 Glucose (Glucose Chew Tab) 4-8 Tablets 4 Tabl... UD PRN PO 02/18/18 21:15 03/20/18 21:14 Dextrose (Dextrose 50% 50ML Syringe) 25-50ML OF 50% DW IV FOR... UD PRN IV 02/18/18 21:15 03/20/18 21:14 Glucagon (Glucagon Inj) 1 mg UD PRN SQ 02/18/18 21:15 03/20/18 21:14 Tamsulosin HCl (Flomax Cap) 0.4 mg DAILY PO 02/19/18 09:00 03/21/18 08:59 02/23/18 07:57 0.4 MG Hydromorphone HCl (Dilaudid Inj) 0.25 mg Q4H PRN IV 02/18/18 21:15 03/04/18 21:14 02/22/18 19:50 0.25 MG Levothyroxine Sodium (Synthroid Tab) 125 mcg DAILYBB PO 02/21/18 06:00 03/23/18 05:59 02/23/18 06:29 125 MCG Senna/Docusate Sodium (Senokot S Tab) 1 tab BID PO 02/21/18 21:00 03/23/18 20:59 02/23/18 07:57 1 TAB Bisacodyl (Dulcolax Tab) 5 mg DAILY PRN PO 02/21/18 17:00 03/23/18 16:59 02/22/18 08:38 5 MG Polyethylene (Miralax Powder Packet) 17 gm BID PRN PO 02/21/18 17:00 03/23/18 16:59 02/21/18 21:26 17 GM Polyethylene (Miralax Powder Packet) 17 gm TID PO 02/22/18 14:00 03/24/18 13:59 02/23/18 13:00 17 GM Capsaicin (Zostrix Crm) 1 appln TID EXT 02/22/18 14:00 03/24/18 13:59 02/23/18 13:00 1 APPLN
[2018-02-23 23:25] VITALS: BP 145/75; PULSE 82; TEMP 37.1; O2SAT 92
[2018-02-24] MEDS: LEVOTHYROXINE 125 MCG TAB PO SCH (05:43)
[2018-02-24 07:16] VITALS: BP 137/68; PULSE 76; TEMP 36.4; O2SAT 93
[2018-02-24 07:49] LABS: BASO % 0.4 %; BASO ABS # 0.04 K/uL (0-0.2); EOS % 4.2 %; EOS ABS # 0.38 K/uL (0-0.5); HEMATOCRIT 27.5 % (42-52); HEMOGLOBIN 9.2 g/dL (14.0-18.0); IG# 0.03 K/uL (0.00-0.02); LYMPH % 15.6 %; MEAN CELL VOLUME 91.1 fL (80-100); MEAN CORPUSCULAR HEMOGLOBIN 30.5 pg (25-34); MEAN CORPUSCULAR HGB CONC 33.5 g/dl (32-36); MEAN PLATELET VOLUME 9.2 fL (7.4-10.4); MONO % 10.2 %; MONO ABS # 0.92 K/uL (0.11-0.59); NEUT % 69.3 %; NEUT ABS # 6.22 K/uL (1.4-6.5); PLATELET COUNT 193 K/uL (130-400); RED CELL DISTRIBUTION WIDTH CV 13.9 % (11.5-14.5); RED CELL DISTRIBUTION WIDTH SD 45.9 fL (36.4-46.3); WHITE BLOOD COUNT 8.99 K/uL (4.8-10.8)
[2018-02-24 07:56] LABS: INR 1.1 (0.9-1.1)
[2018-02-24] MEDS: INSULIN ASPART 100 UNITS/ML 3 ML PEN SC SCH ×3 (08:28→16:30)
[2018-02-24] MEDS: DOCUSATE SODIUM/SENNA 50/8.6MG TAB PO SCH ×2 (08:30→21:10)
[2018-02-24] MEDS: POLYETHYLENE (MIRALAX) 17 GM PACK PO SCH ×2 (08:30→13:46)
[2018-02-24] MEDS: CAPSAICIN CR 0.075% 60 GM TUBE EXT SCH ×3 (08:30→21:11)
[2018-02-24] MEDS: TAMSULOSIN HCL 0.4 MG CAP PO SCH (08:30)
[2018-02-24 14:57] VITALS: BP 143/74; PULSE 97; TEMP 37; O2SAT 97
[2018-02-24 15:02] VITALS: BP 126/77; PULSE 102; O2SAT 93
[2018-02-24] MEDS: WARFARIN SOD 5 MG TAB PO SCH (16:18)
[2018-02-24] MEDS ORDERED: NITROGLYCERIN 0.4 MG SL PER TAB CHARGE UT PRN (18:00)
--- NOTE | 2018-02-24 18:12 | Progress Note ---
Medicine Progress Note Date & Time of Visit: Feb 24, 2018 at 17:49. Subjective 87-year-old man with recurrent falls presents after fall to left side of body. Some falls were unwitnessed so syncope was possible however patient denied syncope. Tolerating p.o. reports pain is controlled and his thigh and hip. Otherwise asymptomatic. Objective Last 8 Hrs Date Time Temp Pulse Resp B/P (MAP) Pulse Ox O2 Delivery O2 Flow Rate FiO2 02/24/18 15:02 102 20 126/77 (93) 93 Room Air 02/24/18 14:57 37.0 97 20 143/74 (97) 97 Room Air Physical Exam: GEN: WNWD, in no acute distress, alert and appropriate HEENT: NC/AT, PERRL, normal sclerae CARDIO: reg rate, S1/2 heard without m/g/r LUNGS: CTA bilaterally, no crackles, rales or wheezes, good diaphragmatic excursion ABD: soft, non-tender, non-distended, no rebound or guarding EXTREMITY: RP and DP palpable 2+ bilat, no LE swelling or edema, extremities are warm and well-perfused. Minor skin wound present on anterior RLE, covered with Optifoam that is c/d/i. NEURO: CN 2-12 grossly intact MUSC: generalized weakness SKIN: warm and dry and wound as above. Extensive ecchymosis on posterior L knee with some greenish tint to skin just proximal Laboratory Results: 02/24/18 07:33 Red Blood Count 3.02, Mean Corpuscular Volume 91.1, Mean Corpuscular Hemoglobin 30.5, Mean Corpuscular Hemoglobin Concent 33.5, Mean Platelet Volume 9.2, Neutrophils (%) (Auto) 69.3, Lymphocytes (%) (Auto) 15.6, Monocytes (%) (Auto) 10.2, Eosinophils (%) (Auto) 4.2, Basophils (%) (Auto) 0.4, Neutrophils # (Auto ) 6.22, Lymphocytes # (Auto) 1.40, Monocytes # (Auto) 0.92, Eosinophils # (Auto ) 0.38, Basophils # (Auto) 0.04 02/23/18 07:02 Test 02/18/18 15:20 02/18/18 16:50 02/20/18 07:16 02/21/18 07:33 Urine Color YELLOW Urine Appearance CLEAR (CLEAR) Urine pH 8.5 (4.5-7.5) Urine Specific [place] 1.015 (1.000-1.030) Urine Protein 1+ (NEG) Urine Glucose (UA) NEG (NEG) Urine Ketones TRACE (NEG) Urine Occult Blood 3+ (NEG) Urine Nitrite NEG (NEG) Urine Bilirubin NEG (NEG) Urine Urobilinogen NEG (NEG) Urine Leukocyte Esterase NEG (NEG) Urine WBC (Auto) 1-5 /hpf (0-5) Urine RBC (Auto) >30 /hpf (0-4) Urine Hyaline Casts (Auto) 0 /lpf (0-5) Urine Epithelial Cells (Auto) 10-20 /lpf (0-5) Urine Bacteria (Auto) NEG (NEG) Activated Partial Thromboplast Time 38.3 SECONDS (21.0-31.0) Partial Thromboplastin Ratio 1.5 Magnesium Level 2.1 mg/dl (1.8-2.4) Total Bilirubin 1.8 mg/dl (0.2-1) Direct Bilirubin 0.5 mg/dl (0-0.2) Aspartate Amino Transf (AST/SGOT) 41 U/L (15-37) Alanine Aminotransferase (ALT/SGPT) 21 U/L (12-78) Alkaline Phosphatase 66 U/L (45-117) Creatine Kinase MB 13.9 ng/ml (0.5-3.6) Creatine Kinase MB Ratio 1.6 (0-3.0) Troponin I < 0.015 ng/ml (0-0.045) Total Protein 7.4 gm/dl (6.4-8.2) Albumin 3.5 gm/dl (3.4-5.0) Estimated Average Glucose 131 mg/dl Hemoglobin A1c 6.2 % (4.5-5.6) Total Creatine Kinase 419 U/L (39-308) Thyroid Stimulating Hormone (TSH) 0.249 uIu/ml (0.300-4.500) Free Thyroxine 0.90 ng/dl (0.80-1.60) Free Triiodothyronine 1.24 pg/ml (2.30-4.20) Cortisol AM Sample 8.82 mcg/dl (4.30-22.40) Cortisol Response to Stimulation Cortisol Baseline Test 02/22/18 06:33 02/23/18 07:02 02/24/18 07:33 02/24/18 16:40 Acanthocytes 1+ Anion Gap 7.0 mmol/L (3-11) Est Creatinine Clear Calc Drug Dose 57.9 ml/min Estimated GFR () 74.3 Estimated GFR (Non- 64.1 BUN/Creatinine Ratio 22.5 (10-20) Calcium Level 8.2 mg/dl (8.5-10.1) Vitamin B12 Level 1390 pg/mL (211-911) White Blood Count 8.99 K/uL (4.8-10.8) Red Blood Count 3.02 M/uL (4.7-6.1) Hemoglobin 9.2 g/dL (14.0-18.0) Hematocrit 27.5 % (42-52) Mean Corpuscular Volume 91.1 fL (80-100) Mean Corpuscular Hemoglobin 30.5 pg (25-34) Mean Corpuscular Hemoglobin Concent 33.5 g/dl (32-36) Platelet Count 193 K/uL (130-400) Mean Platelet Volume 9.2 fL (7.4-10.4) Neutrophils (%) (Auto) 69.3 % Lymphocytes (%) (Auto) 15.6 % Monocytes (%) (Auto) 10.2 % Eosinophils (%) (Auto) 4.2 % Basophils (%) (Auto) 0.4 % Neutrophils # (Auto) 6.22 K/uL (1.4-6.5) Lymphocytes # (Auto) 1.40 K/uL (1.2-3.4) Monocytes # (Auto) 0.92 K/uL (0.11-0.59) Eosinophils # (Auto) 0.38 K/uL (0-0.5) Basophils # (Auto) 0.04 K/uL (0-0.2) RDW Standard Deviation 45.9 fL (36.4-46.3) RDW Coefficient of Variation 13.9 % (11.5-14.5) Immature Granulocyte % (Auto) 0.3 % Immature Granulocyte # (Auto) 0.03 K/uL (0.00-0.02) Prothrombin Time 11.8 SECONDS (9.0-12.0) Prothromb Time International Ratio 1.1 (0.9-1.1) Bedside Glucose 123 mg/dl (70-99) Last 24 Hours Test 02/23/18 20:35 02/24/18 07:33 02/24/18 07:37 02/24/18 11:07 Bedside Glucose 114 mg/dl 108 mg/dl 153 mg/dl White Blood Count 8.99 K/uL Red Blood Count 3.02 M/uL Hemoglobin 9.2 g/dL Hematocrit 27.5 % Mean Corpuscular Volume 91.1 fL Mean Corpuscular Hemoglobin 30.5 pg Mean Corpuscular Hemoglobin Concent 33.5 g/dl Platelet Count 193 K/uL Mean Platelet Volume 9.2 fL Neutrophils (%) (Auto) 69.3 % Lymphocytes (%) (Auto) 15.6 % Monocytes (%) (Auto) 10.2 % Eosinophils (%) (Auto) 4.2 % Basophils (%) (Auto) 0.4 % Neutrophils # (Auto) 6.22 K/uL Lymphocytes # (Auto) 1.40 K/uL Monocytes # (Auto) 0.92 K/uL Eosinophils # (Auto) 0.38 K/uL Basophils # (Auto) 0.04 K/uL RDW Standard Deviation 45.9 fL RDW Coefficient of Variation 13.9 % Immature Granulocyte % (Auto) 0.3 % Immature Granulocyte # (Auto) 0.03 K/uL Prothrombin Time 11.8 SECONDS Prothromb Time International Ratio 1.1 Test 02/24/18 16:40 Bedside Glucose 123 mg/dl Assessment & Plan 87-year-old man with recurrent falls presents after fall to left side of body. Some falls were unwitnessed so syncope was possible however patient denied syncope. Tolerating p.o. reports pain is controlled and his thigh and hip. Otherwise asymptomatic. 1. Recurrent mechanical falls-exact circumstances of fall not clear. Patient was originally noted to be orthostatic and is requiring 2 person assistance to ambulate. Because of falls is likely multifactorial including orthostatic hypotension, autonomic neuropathy and possible drug effect. Continuing tamsulosin with caution. Chronic atrial fibrillation noted with appropriate ventricular rate. Other workup including labs and imaging studies are negative for acute issue. Plan is to get patient to rehabilitation Center for strength training. Continue vitamin D at increased dose of 1000 units daily. Pain in left hip and thigh is controlled with tramadol and acetaminophen. 2. Left thigh hematoma-extensive ecchymosis seen and posterior knee area, patient reports pain that is improved but still present. Pain is controlled with pain medication at this time. Warfarin was restarted last night and H&H is stable. Continue conservative management. 3. Chronic atrial fibrillation-rate controled. Warfarin was on hold due to left thigh hematoma and was started yesterday with stable H&H. 4. Carotid artery disease-carotid duplex demonstrates moderate stenosis of bilateral internal carotid arteries. Continue aspirin and and Lipitor. 5. Acute blood loss anemia-secondary to hematoma of left thigh. Patient is stable and not requiring transfusion at this time. Will follow as outpatient. 6. Diabetes type 2 well controlled with dietary management as outpatient with recent A1c 6.2. Stopping fingersticks at this time patient not requiring insulin. 7. Hypothyroidism-continue Synthroid 125 daily. Should be noted that dose was slightly increased during his hospitalization 8. Neuropathy of feet bilaterally-improved with capsicin cream DVT prophylaxis-warfarin restarted cautiously in setting of recent hematoma Full code Disposition to [facility] facility in next 1-2 days. Called [facility] for peer to peer however call was placed at 4:25 PM and secretary to the vice president stated that [id number] was only allowed up until 4 PM and that it had . I relayed this to the family and the son Miguel states that he is okay with going to [facility] which we will plan on tomorrow. The patient is also okay with this plan. Jyotsna Talbert DO [facility] hospitalist . Current Inpatient Medications: Current Inpatient Medications Medications (Trade) Dose Ordered Sig/Stephanie Route Start Time Stop Time Status Last Admin Dose Admin Prochlorperazine Edisylate 5 mg/ Syringe 5 ml @ 5 mls/min Q6H PRN IV 02/18/18 21:15 03/20/18 21:14 Tramadol HCl (Ultram Tab) 25 mg Q6H PRN PO 02/18/18 21:15 03/20/18 21:14 02/23/18 16:19 25 MG Acetaminophen (Tylenol Tab) 325 mg Q6H PRN PO 02/18/18 21:15 03/20/18 21:14 02/22/18 08:41 325 MG Nitroglycerin (Nitrostat Tab) 0.4 mg UD PRN SL 02/18/18 21:15 03/20/18 21:14 Insulin Aspart (novoLOG ASPART) SLIDING SCALE If C... ACHS SC 02/19/18 07:00 03/21/18 06:59 Glucose (Glucose 40% Gel) 15-30 GRAMS 15 GRAMS... UD PRN PO 02/18/18 21:15 03/20/18 21:14 Glucose (Glucose Chew Tab) 4-8 Tablets 4 Tabl... UD PRN PO 02/18/18 21:15 03/20/18 21:14 Dextrose (Dextrose 50% 50ML Syringe) 25-50ML OF 50% DW IV FOR... UD PRN IV 02/18/18 21:15 03/20/18 21:14 Glucagon (Glucagon Inj) 1 mg UD PRN SQ 02/18/18 21:15 03/20/18 21:14 Tamsulosin HCl (Flomax Cap) 0.4 mg DAILY PO 02/19/18 09:00 03/21/18 08:59 02/24/18 08:30 0.4 MG Hydromorphone HCl (Dilaudid Inj) 0.25 mg Q4H PRN IV 02/18/18 21:15 03/04/18 21:14 02/22/18 19:50 0.25 MG Levothyroxine Sodium (Synthroid Tab) 125 mcg DAILYBB PO 02/21/18 06:00 03/23/18 05:59 02/24/18 05:43 125 MCG Senna/Docusate Sodium (Senokot S Tab) 1 tab BID PO 02/21/18 21:00 03/23/18 20:59 02/24/18 08:30 1 TAB Bisacodyl (Dulcolax Tab) 5 mg DAILY PRN PO 02/21/18 17:00 03/23/18 16:59 02/22/18 08:38 5 MG Capsaicin (Zostrix Crm) 1 appln TID EXT 02/22/18 14:00 03/24/18 13:59 02/24/18 13:50 1 APPLN Warfarin Sodium (Coumadin Tab) 5 mg DAILY@16 PO 02/24/18 16:00 03/26/18 15:59 02/24/18 16:18 5 MG Polyethylene (Miralax Powder Packet) 17 gm DAILY PO 02/25/18 09:00 03/27/18 08:59
[2018-02-24 23:40] VITALS: BP_SYST 137; BP_SYST 147; BP_SYST 148; BP_DIAS 70; BP_DIAS 72; BP_DIAS 74; PULSE 78; TEMP 37.1; O2SAT 93
[2018-02-25] MEDS: LEVOTHYROXINE 125 MCG TAB PO SCH (06:02)
[2018-02-25 07:17] LABS: BASO % 0.5 %; BASO ABS # 0.04 K/uL (0-0.2); EOS % 5.4 %; EOS ABS # 0.45 K/uL (0-0.5); HEMATOCRIT 27.5 % (42-52); HEMOGLOBIN 9.2 g/dL (14.0-18.0); IG# 0.03 K/uL (0.00-0.02); LYMPH % 17.5 %; LYMPH ABS # 1.47 K/uL (1.2-3.4); MEAN CELL VOLUME 90.5 fL (80-100); MEAN CORPUSCULAR HEMOGLOBIN 30.3 pg (25-34); MEAN CORPUSCULAR HGB CONC 33.5 g/dl (32-36); MEAN PLATELET VOLUME 8.9 fL (7.4-10.4); MONO % 9.9 %; MONO ABS # 0.83 K/uL (0.11-0.59); NEUT % 66.3 %; NEUT ABS # 5.56 K/uL (1.4-6.5); PLATELET COUNT 195 K/uL (130-400); RED CELL DISTRIBUTION WIDTH CV 13.9 % (11.5-14.5); RED CELL DISTRIBUTION WIDTH SD 45.6 fL (36.4-46.3); WHITE BLOOD COUNT 8.38 K/uL (4.8-10.8)
[2018-02-25 07:24] LABS: INR 1.1 (0.9-1.1)
[2018-02-25 07:59] VITALS: BP_SYST 126; BP_SYST 128; BP_SYST 137; BP_DIAS 73; BP_DIAS 74; BP_DIAS 79; PULSE 75; PULSE 91; PULSE 92; TEMP 37; O2SAT 93
[2018-02-25] MEDS ORDERED: ASPIRIN 81 MG ECTAB PO SCH (09:00)
[2018-02-25] MEDS: DOCUSATE SODIUM/SENNA 50/8.6MG TAB PO SCH (09:00)
[2018-02-25] MEDS ORDERED: ATORVASTATIN 40 MG TAB PO SCH (09:00)
[2018-02-25] MEDS ORDERED: CYANOCOBALAMIN 500 MCG TAB (VIT B-12) PO SCH (09:00)
[2018-02-25] MEDS ORDERED: POLYETHYLENE (MIRALAX) 17 GM PACK PO SCH (09:00)
[2018-02-25] MEDS ORDERED: CHOLECALCIFEROL 1000 INTER.UNIT TAB PO SCH (09:00)
[2018-02-25] MEDS: TAMSULOSIN HCL 0.4 MG CAP PO SCH (09:02)
[2018-02-25] MEDS: CAPSAICIN CR 0.075% 60 GM TUBE EXT SCH ×2 (09:02→14:22)
[2018-02-25] MEDS ORDERED: SYN125 PO (14:14)
[2018-02-25] MEDS ORDERED: [UNRECOGNIZED DRUG - CODE] EXT (14:14)
--- NOTE | 2018-02-25 14:19 | Discharge Instructions ---
Discharge Instructions Date of Service Feb 25, 2018. Admission Reason for Admission: Hematoma; Syncope Discharge Discharge Diagnosis / Problem: Syncope, hematoma L thigh s/p fall, recurrent falls Discharge Goals Goal(s): Prevent Disease Progression Activity Recommendations Activity Limitations: per Instructions/Follow-up section . Instructions / Follow-Up Instructions / Follow-Up Please take all medications as instructed. It is recommended that he see her primary care doctor within 1 week of discharge. You will need a repeat INR check on Thursday, 02/27. This can be drawn by staff at the facility and sent to your primary care doctor's office. It was a pleasure taking care of you! Call if you have any questions or problems. You can reach a [facility] hospitalist on duty at [facility] 24 hours a day by calling [phone]. Take care of yourself. Jyotsna Talbert DO [facility] Hospitalist Current Hospital Diet Patient's current hospital diet: AHA Diet (Heart Healthy), Diabetes Type 2 Diet Discharge Diet Recommended Diet: AHA Diet (Heart Healthy), Diabetes Type 2 Diet Procedures Procedures Performed: TTE Pending Studies Studies pending at discharge: no Laboratory Results Hemoglobin A1c Test 02/20/18 07:16 Range/Units Estimated Average Glucose 131 mg/dl Hemoglobin A1c 6.2 H 4.5-5.6 % Medical Emergencies . Who to Call and When: Medical Emergencies: If at any time you feel your situation is an emergency, please call 911 immediately. . Non-Emergent Contact Non-Emergency issues call your: Primary Care Provider . . "Provider Documentation" section prepared by Jyotsna Talbert. .
--- NOTE | 2018-02-25 14:23 | Discharge Summary ---
Discharge Summary Date of Service Feb 25, 2018. Discharge Summary Admission Date: Feb 18, 2018 at 20:44 Discharge Date: Feb 25, 2018 Discharge Disposition[facility] facility Principal Diagnosis: Recurrent mechanical falls Left thigh hematoma status post fall Possible syncope Chronic atrial fibrillation Carotid artery disease Acute blood loss anemia Diabetes mellitus type 2 Hypothyroidism Bilateral neuropathy of the feet Procedures: TTE-- Conclusions -- * The left ventricle is normal in size. * There is moderate concentric left ventricular hypertrophy. * Left ventricular systolic function is normal. * The left ventricular wall motion is normal. * Ejection Fraction = 65-70%. * Aortic valve sclerosis moderate, without significant aortic valvular stenosis. * Mitral valve leaflets are mildly thickened * There is trace mitral regurgitation. * Doppler findings do not suggest pulmonary hypertension. Vaccinations: None. Consultations: None. Pending Studies/Follow-Up: See instructions below Medication Reconciliation New Medications: Capsaicin (Arthritis Pain Relieving) 0.075 % Cre 1 APPLN EXT TID for 30 Days, #60 GM Continued Medications: Aspirin (Aspirin Ec) 81 Mg Tab 81 MG PO DAILY Atorvastatin (Lipitor) 40 Mg Tab 40 MG PO DAILY Cholecalciferol (Vitamin D3 400) 400 Unit Cap 400 INTER.UNIT PO DAILY Cyanocobalamin (Vitamin B-12 1000 Mcg) 1,000 Mcg Tab 1000 MCG PO DAILY, TAB Levothyroxine Sodium (Levothyroxine Sodium) 100 Mcg Tab 100 MCG PO DAILY TAKE THIS MEDICATION 30 MINUTES BEFORE BREAKFAST OR ANY OTHER MEDICATIONS Nitroglycerin (Nitrostat) 0.4 Mg Tab 0.4 MG UT UD PRN for Chest Pain, BTL PLACE ONE TABLET UNDER THE TONGUE EVERY 5 MINUTES FOR UP TO 3 DOSES OVER 15 MINUTES IF NEEDED FOR CHEST PAIN Tamsulosin HCl (Tamsulosin HCl) 0.4 Mg Cap 0.4 MG PO DAILY Vitamin E (Vitamin E) 1,000 Unit Cap 1000 INTER.UNIT PO Q2D Warfarin Sod (Jantoven) 5 Mg Tab 7.5 MG PO 5XWK, TAB TAKE 7.5 MG EVERY THURSDAY,THURSDAY,THURSDAY,THURSDAY AMD THURSDAY OR OTHERWISE DIRECTED TO TAKE BY ANTICOAGULATION CLINIC/MD Warfarin Sod (Jantoven) 5 Mg Tab 5 MG PO 2XWK, TAB TAKE 5 MG EVERY THURSDAY AND THURSDAY OR OTHERWISE DIRECTED TO TAKE BY ANTICOAGULATION CLINIC/MD Discontinued Medications: Furosemide (Furosemide) 20 Mg Tab 10 MG PO DAILY Admission Information HPI (per Admitting provider): HISTORY OF PRESENT ILLNESS: History obtained from patient, son and records. Patient is a fair historian. Medical history significant for AFib on Coumadin, orthostatic hypotension as per records, hyperlipidemia, hypothyroidism, BPH, history of pituitary macroadenoma status post surgery, PVD, past tobacco abuse, chronic anemia (baseline hemoglobin of 11), TIA as per records, history of diet controlled DM. Recent confinement last May 2015 for sepsis secondary to pneumonia. Last year, the patient noted to have at least 2 syncopal events as per family. More recent one was in October 2017 attributed to syncope, dehydration. As per records, the patient was put on a 2 week Holter monitor which showed A. fib. A few days ago the patient had a fall. Patient denies syncope, although patient's son not sure about patient's reliability. Note of left hip pain. Patient was not moving as much. This morning he had another fall without syncope as per patient, unable to get up. The patient was found by family at home. Patient complaining of left hip, back pain. Denies chest pain, shortness of breath, headache. Patient brought to the Emergency Room. Physical Exam (per Admitting): PHYSICAL EXAMINATION: VITAL SIGNS: Blood pressure was noted to be 160/100, later 134/74, pulse rate 69, RR 18, temperature 37, sats 99 on room air. GENERAL: Noted to be comfortable, no respiratory distress, episodic confusion during encounter, slightly hard of hearing. SKIN: Pallor, warm. HEENT: Pale palpebral conjunctiva. No ptosis. Dry mucosa. NECK: Supple, nontender. CHEST: Decreased effort, no tenderness. HEART: Irregular. No murmur. ABDOMEN: Some distention and nontender. EXTREMITIES: Tenderness, left thigh. Left lower extremity bigger than the right. NEUROLOGIC: episodic confusion; hearing impairment. No facial asymmetry. Gait and stance not assessed. Hospital Course 87-year-old man with recurrent falls presents after fall to left side of body. Some falls were unwitnessed so syncope was possible however patient denied syncope. Tolerating p.o. reports pain is controlled and his thigh and hip. Otherwise asymptomatic. 1. Recurrent mechanical falls-exact circumstances of fall not clear. Patient was originally noted to be orthostatic and is requiring 2 person assistance to ambulate. Because of falls is likely multifactorial including orthostatic hypotension, autonomic neuropathy and possible drug effect. Continuing tamsulosin with caution. Chronic atrial fibrillation noted with appropriate ventricular rate. Other workup including labs and imaging studies are negative for acute issue. Plan is to get patient to rehabilitation Center for strength training. Continue vitamin D at increased dose of 1000 units daily. Pain in left hip and thigh is controlled with tramadol and acetaminophen. 2. Left thigh hematoma-extensive ecchymosis seen and posterior knee area, patient reports pain that is improved but still present. Pain is controlled with pain medication at this time. Warfarin was restarted last night and H&H is stable. Continue conservative management. 3. Chronic atrial fibrillation-rate controled. Warfarin was on hold due to left thigh hematoma and was started yesterday with stable H&H. 4. Carotid artery disease-carotid duplex demonstrates moderate stenosis of bilateral internal carotid arteries. Continue aspirin and and Lipitor. 5. Acute blood loss anemia-secondary to hematoma of left thigh. Patient is stable and not requiring transfusion at this time. Will follow as outpatient. 6. Diabetes type 2 well controlled with dietary management as outpatient with recent A1c 6.2. Stopping fingersticks at this time patient not requiring insulin. 7. Hypothyroidism-continue Synthroid 125 daily. Should be noted that dose was slightly increased during his hospitalization 8. Neuropathy of feet bilaterally-improved with capsicin cream DVT prophylaxis-warfarin restarted cautiously in setting of recent hematoma Full code Disposition to care home facility in next 1-2 days. Called [facility] for peer to peer however call was placed at 4:25 PM and medical secretary teacher stated that [id number] was only allowed up until 4 PM and that it had . I relayed this to the family and the son Miguel states that he is okay with going to [facility] which we will plan on tomorrow. The patient is also okay with this plan. [facility] . Total time spent on discharge = 60 minutes This includes examination of the patient, discharge planning, medication reconciliation, and communication with other providers. Discharge Instructions [facility] [address] [place] [address] Discharge Medical Patient Name: Marco Mckeon Unit Number: [id number] Date of : 1930 Patient Status: Admitted Inpatient Attending Doctor: Jyotsna Talbert DO DI: Medical v5 Discharge Instructions Date of Service Feb 25, 2018. Admission Reason for Admission: Hematoma; Syncope Discharge Discharge Diagnosis / Problem: Syncope, hematoma L thigh s/p fall, recurrent falls Discharge Goals Goal(s): Prevent Disease Progression Activity Recommendations Activity Limitations: per Instructions/Follow-up section . Instructions / Follow-Up Instructions / Follow-Up Please take all medications as instructed. It is recommended that he see her primary care doctor within 1 week of discharge. You will need a repeat INR check on Thursday, 02/27. This can be drawn by staff at the facility and sent to your primary care doctor's office. It was a pleasure taking care of you! Call if you have any questions or problems. You can reach a [facility] [address] hospitalist on duty at [facility] 24 hours a day by calling [phone]. Take care of yourself. Jyotsna Talbert DO [facility] [address] Hospitalist Current Hospital Diet Patient's current hospital diet: AHA Diet (Heart Healthy), Diabetes Type 2 Diet Discharge Diet Recommended Diet: AHA Diet (Heart Healthy), Diabetes Type 2 Diet Procedures Procedures Performed: TTE Pending Studies Studies pending at discharge: no Laboratory Results Hemoglobin A1c Test 02/20/18 07:16 Range/Units Estimated Average Glucose 131 mg/dl Hemoglobin A1c 6.2 H 4.5-5.6 % Medical Emergencies . Who to Call and When: Medical Emergencies: If at any time you feel your situation is an emergency, please call 911 immediately. . Non-Emergent Contact Non-Emergency issues call your: Primary Care Provider . . "Provider Documentation" section prepared by Jyotsna Talbert. . Additional Copies To Jeremy Zheng M.D.; Franki Brush M.D.; Leila Peterson P.A.
[2018-02-25] MEDS: WARFARIN SOD 5 MG TAB PO SCH (15:16)
[2018-02-25 17:42] VITALS: BP 138/79; PULSE 78; TEMP 36.7; O2SAT 97
== END 2018-02-25 17:35 | DRG 605 ==
LOC: EDBD 14:26 → C.EDB 14:27 → C.2T 20:44 → ENRESERV 21:07 → C.MS2W 02-21 16:12
PROVIDERS: ADMIT Hospitalist; ATTEND Hospitalist
DX: S70.12XA Contusion of left thigh, initial encounter (principal); M62.82 Rhabdomyolysis; D62 Acute posthemorrhagic anemia; E11.9 Type 2 diabetes mellitus without complications; I10 Essential (primary) hypertension; Z87.891 Personal history of nicotine dependence; I48.2 Chronic atrial fibrillation; I65.23 Occlusion and stenosis of bilateral carotid arteries; R29.6 Repeated falls; I95.1 Orthostatic hypotension; Z88.8 Allergy status to other drugs, medicaments and biological substances; W18.09XA Striking against other object with subsequent fall, initial encounter; Y92.009 Unspecified place in unspecified non-institutional (private) residence as the place of occurrence of the external cause

== ENCOUNTER → 2018-07-13 | Outpatient (CLI) | payer OTHER ==
[~2018-07-13] MED LIST changes: -LSX20 PO; +[UNRECOGNIZED DRUG - CODE] EXT
== END | disposition home or self-care (01) ==
LOC: C.LABSPEC 10:25
PROVIDERS: ATTEND Urology
DX: R31.0 Gross hematuria (principal); R32 Unspecified urinary incontinence